=== PATIENT | male | born 1930 | race African-American/Black ===

== ENCOUNTER 2016-04-28 16:41 | Observation (INO) ==
[2016-04-28] MEDS ORDERED: DOCUSATE SODIUM 100 MG CAPSULE PO PRN (16:43)
[2016-04-28] MEDS ORDERED: ONDANSETRON 4 MG/2 ML VIAL IV PRN (16:43)
[2016-04-28] MEDS ORDERED: ACETAMINOPHEN 325 MG TABLET PO PRN (16:43)
[2016-04-28] MEDS ORDERED: SODIUM CHLORIDE 0.9% 1,000 ML IV SCH (17:00)
--- NOTE | 2016-04-28 18:14 | Family Practice History&Phys ---
Assessment and Plan (1) Recurrent right pleural effusion Status: Acute Assessment and plan: 04/27/1999 pain admitting patient to get a CT of his chest and will get pulmonary to see him Current Visit: Yes (2) Dyspnea Status: Acute Assessment and plan: 04/28/2016 appreciate pulmonary illness case. Oxygen as necessary for shortness of breath until we can address the probable effusion Current Visit: Yes (3) History of gastroesophageal reflux (GERD) Status: Acute Assessment and plan: 04/28/2016 we will continue proton pump inhibitors Current Visit: Yes History of Present Illness Chief complaint: Shortness of breath, pleural effusion, large inguinal hernia History of present illness: Mr. Joseph is a 85 year old male Came to the clinic today because he has been feeling weak and significantly short of breath over the last week. States he wakes up hot even though school in the house he denies any obvious fever but does have a mild but nonproductive cough. Has not had any loss of weight states he is eating well and his bowel movements have been okay. He also admits that he has been voiding well. Exam reveals decreased breath sounds in his bilateral basilar lung cash. His chest x-ray was done revealed a very large what appears to be pleural effusion with elevated right hemidiaphragm. The patient does not have any significant tachypnea nor does he have a significant decrease in oxygen sats but his heart rate is about 110. States that his mouth is very dry although this is difficult to elicit on exam with some only mildly dry mucous membranes. We did do an Accu-Chek which was 90. I am unclear to the etiology of his foot these findings but feel like we need to admit him and at least have this pleural effusion drained and evaluate further. I am going to go ahead and do a CT of his chest abdomen pelvis. It should be noted that he has got a very large inguinal hernia with probable intestinal contents going into the scrotal sac. He denies any significant pain with this but it does need to be evaluated and will get surgical candidate if in fact CT shows this and he is a surgical candidate. Appreciate pulmonary consult on this case 12 point system: reviewed and no additional remarkable complaints except as stated (Those mentioned in the history and physical.) - Constitutional Constitutional: Absent: anorexia - EENT Eyes: Absent: blurry vision Nose, mouth and throat: Present: other (Admits to dry mouth). Absent: dysphagia - Cardiovascular Cardiovascular: Absent: chest pain at rest - Respiratory Respiratory: Present: cough, dyspnea - Gastrointestinal Gastrointestinal: Absent: coffee ground emesis Exam - Constitutional Exam: GENERAL APPEARANCE: in mild distress, well developed, well nourished. SKIN: no suspicious lesions, warm and dry. HEAD: normocephalic, atraumatic. EYES: pupils equal, round, reactive to light and accommodation. EARS: normal. THROAT: clear. ORAL CAVITY: mucosa moist. NECK/THYROID: neck supple, full range of motion, no cervical lymphadenopathy. HEART: no murmurs, regular rate and rhythm, S1, S2 normal. LUNGS: clear to auscultation bilaterally. Decreased breath sounds bilaterally but worse on the right lower lung cash ABDOMEN: normal, bowel sounds present, soft, nontender, nondistended. GENITOURINARY: deferred. EXTREMITIES: no clubbing, cyanosis, or edema. MUSCULOSKELETAL: normal, no swelling or deformity. NEUROLOGIC: nonfocal, motor strength normal upper and lower extremities , sensory exam intact.
--- NOTE | 2016-04-28 18:47 | CT Report ---
CT chest abdomen pelvis wo/w Indication: Bilateral pleural effusion, scrotal mass Comparison: None Technique: Multiple axial tomographic images of the chest, abdomen, and pelvis were obtained before and after the administration of 100 cc Omnipaque 350 intravenous contrast. Findings: Atelectatic calcifications of the great vessels and coronary arteries. Moderate cardiomegaly present. Reflux of contrast into the IVC and hepatic veins suggestive of an element of right heart failure. There is moderate to large right and small left pleural fluid. There is atelectasis of much of the right lower lobe. Scattered interlobular septal thickening present. Osseous and surrounding soft tissue structures of the chest demonstrate no acute abnormality. Scattered degenerative change present. No worrisome focal hepatic abnormality. Gallbladder nondistended. Pancreas and spleen grossly unremarkable. Bilateral adrenal glands and kidneys grossly unremarkable. Urinary bladder incompletely distended. Minimal calcification the prostate. No evidence of gastrointestinal obstruction or acute appendicitis. There is a prominent right inguinal hernia which contains a moderate amount of small bowel as well as the appendix. 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 There is minimal ectasia of the infrarenal abdominal aorta measuring up to 2.2 cm. Nonspecific moderate abdominal wall edema. Osseous structures of the abdomen/pelvis demonstrate no acute abnormality. Scattered degenerative change present. IMPRESSION: Moderate cardiomegaly with reflux of contrast into the IVC and hepatic veins suggestive of an element of right heart failure. Moderate to large right and small left pleural effusions. There is significant atelectasis of much of the right lower lobe. Underlying infection would be difficult to exclude. Nonspecific scattered intralobular septal thickening present which could reflect interstitial pulmonary edema. Prominent right inguinal hernia which contains moderate amount of small bowel as well as appendix. There is no evidence of gastrointestinal obstruction. 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 There is minimal ectasia of the infrarenal abdominal aorta measuring up to 2.2 cm. Nonspecific body wall edema may reflect fluid overload state. PROCEDURE INTERPRETED AT [facility] DEPARTMENT OF RADIOLOGY Final Report Signed by: Dr Reed Sinclair
--- NOTE | 2016-04-28 18:59 | XRay Report ---
XR chest 2V Indication: SOB Comparison: None Technique: Frontal and lateral views of the chest. Findings: Moderate cardiomegaly. Moderate right and small left pleural fluid. There is atelectasis/consolidation within the right lung base. Underlying infection would be difficult to exclude although constellation of findings suggests CHF. There is mild prominence of pulmonary interstitial markings which could reflect mild interstitial pulmonary edema. Osseous and surrounding soft tissue structures demonstrate no acute abnormality. IMPRESSION: As above. PROCEDURE INTERPRETED AT [facility] DEPARTMENT OF RADIOLOGY Final Report Signed by: Dr Reed Sinclair
[2016-04-28 19:17] LABS: Basophils % 0.4 % (0.0-0.8); Eosinophils % 0.6 % (0.00-10.9); Hematocrit 41.8 VOL% (42.0-52.0); Hemoglobin 13.4 GM/DL (14.0-18.0); Immature Granulocytes % 0.3 %; Immature Granulocytes Absolute 0.02 #; Lymphocytes # 0.9 10*3/uL (1.4-4.0); Lymphocytes % 14.1 % (21.2-54.2); Mean Corpuscular HGB Conc 32.1 GM/DL (32-36); Mean Corpuscular Hemoglobin 30 PG (27-34); Mean Corpuscular Volume 93.9 FL (87-102); Mean Platelet Volume 11.6 FL (9.6-12.0); Monocytes # 0.8 10*3/uL (0.11-0.8); Monocytes % 11.5 % (1.7-12.7); Neutrophils # 4.9 10*3/uL (1.4-7.4); Neutrophils % 73.1 % (38.7-73.9); Platelet Count 201 T/CUMM (130-400); Red Blood Count 4.45 MC/CUMM (3.8-5.5); Red Cell Distribution Width 15.6 % (9.3-17.3); White Blood Count 6.7 T/CUMM (4-12)
[2016-04-28 19:37] LABS: Albumin 3.6 G/DL (3.4-5.0); Bilirubin,Total 0.6 MG/DL (0.2-1.0); Calcium 8.7 MG/DL (8.5-10.1); Osmolality,Calculated 284.1 MOS/KG (273-304); Potassium 3.6 MMOL/L (3.5-5.1)
[2016-04-28] MEDS: cefTRIAXone 1,000 MG in SODIUM CHLORIDE 0.9% 100 ML IV SCH (22:04)
[2016-04-29 05:36] LABS: Apearance,Urine CLEAR (Clear); Bilirubin,Urine Negative (Negative); Blood, Urine Negative (Negative); Glucose,Urine (UA) Negative (Negative); Ketones,Urine Negative (Negative); Mucus,Urine Few /LPF (Occasional); Nitrite,Urine Negative (Negative); Protein,Urine Negative; RBC,Urine <1 /HPF (0-4); Squamous Epithelial Cell,Urine Occasional /HPF (0-10); Urine Color Yellow (Yellow); WBC,Urine <1 /HPF (0-6)
--- NOTE | 2016-04-29 07:56 | EKG Report ---
Stationary ECG Study [facility] Test Date: 04/29/2016 7:05:49 AM Pat Name: Lucy ALBARADO Department: Room: 539 Gender: M Javascript Ui Developer: BENNY : 1930 Requested by: Mario Alberto Rice Order Number: [id number] Diogenes MD: ANSON GALICIA Intervals [place] Rate: 101 P: 78 VT: 157 QRS: 70 QRSD: 98 T: -44 QT: 367 QTc: 425 Interpretive Statements SINUS TACHYCARDIA POSSIBLE LEFT ATRIAL ENLARGEMENT POSSIBLE ANTERIOR MYOCARDIAL INFARCTION, OF INDETERMINATE AGE PROBABLE INFERIOR MYOCARDIAL INFARCTION, OF INDETERMINATE AGE Electronically Signed On 05-01-16 19:31:22 CDT by ANSON GALICIA [email or web address]
[2016-04-29] MEDS: PANTOPRAZOLE 40 MG TABLET PO SCH (08:22)
[2016-04-29] MEDS ORDERED: FUROSEMIDE 40 MG/4 ML VIAL IV ONE (09:46)
--- NOTE | 2016-04-29 10:13 | Pulmonology Consult Note ---
Assessment and Plan (1) Recurrent right pleural effusion Status: Acute Assessment and plan: The patient has actually bilateral pleural effusions worse on the right. I suspect he has some cardiac dysfunction. We will check an echocardiogram and go ahead with a right thoracentesis. Current Visit: Yes (2) Dyspnea Status: Acute Assessment and plan: He is short of breath and I suspect some cardiac dysfunction Current Visit: Yes (3) History of gastroesophageal reflux (GERD) Status: Acute Assessment and plan: He will continue treatment for reflux Current Visit: Yes History of Present Illness Chief complaint: Shortness of breath History of present illness: Mr. Joseph is a 85 year old black male that has a history of having possibly hypertension but otherwise been quite healthy and active. He is a lifetime non- smoker. He says the last 3-4 days he has had more shortness of breath has had trouble lying flat at night. He has not been really having a lot of fever or chest pain. He has not had any sputum production. He does not think he has ever had any heart disease. He came in and was found to have a fairly large right pleural effusion. He has not been in the hospital in quite some time. Home Medications Medication Instructions Recorded Confirmed Type Dexlansoprazole [Dexilant] 60 mg PO DAILY 04/29/16 04/29/16 History Allergies Allergy/AdvReac Type Severity Reaction Status Date / Time No Known Allergies Allergy Verified 04/28/16 19:06 - Constitutional Constitutional: Present: fatigue. Absent: chills, fever(s), weight gain, weight loss - EENT Eyes: Absent: loss of vision Ears: Absent: decreased hearing Nose, mouth and throat: Absent: dysphagia, headache(s), sinus pressure - Cardiovascular Cardiovascular: Present: dyspnea, orthopnea, PND. Absent: chest pain at rest, edema - Respiratory Respiratory: Present: cough. Absent: hemoptysis, wheezing, pain on inspiration , change in phlegm color - Gastrointestinal Gastrointestinal: Absent: abdominal pain, change in bowel habits, dysphagia, nausea, vomiting - Genitourinary Genitourinary: Absent: dysuria, hematuria, nocturia, urinary frequency - Musculoskeletal Musculoskeletal: Absent: arthralgias, muscle weakness - Neurological Neurological: Absent: abnormal speech, focal weakness, paresthesias Exam (Pulmonay) H&P - Constitutional Vitals: Period Temp Pulse Resp BP Sys/Morton Pulse Ox Last 24 Hr 97.7 F-98.2 F 96-98 18-20 117-122/68-83 97-100 General appearance: normal weight, no acute distress, other (He is an elderly man that looks quite healthy) - Head Head exam: Present: normal inspection, normocephalic - Eye Eye exam: Present: EOMI. Absent: scleral icterus Pupils: Present: SAEED - ENT ENT exam: Present: normal exam - Neck Neck exam: Present: normal inspection. Absent: lymphadenopathy, thyromegaly - Respiratory Respiratory exam: Present: decreased breath sounds (He has decreased breath sounds in the right base.), rales (He has some crackles in the bases). Absent: wheezes - Cardiovascular Cardiovascular exam: Present: gallop (He has a gallop rhythm.), regular rate and rhythm, tachycardia. Absent: systolic murmur - GI/Abdominal GI/Abdominal exam: Present: normal bowel sounds, hernia (Has a right inguinal hernia), soft. Absent: organomegaly, tenderness - Extremities Exam Extremities exam: Absent: calf tenderness, edema - Neurological Exam Neurological exam: Present: alert, oriented X3, CN II-XII intact - Psychiatric Psychiatric exam: Present: normal affect - Skin Skin exam: Present: warm, dry Medical,Surgical,& Family Hx - Medical History Cardio: History of: Hypertension Gastrointestinal: History of: GERD - Social History Smoking Status: Never smoker Frequency of Alcohol Use: None Type of Drug Use: None Results - Labs CBC & BMP: 04/28/16 19:03 04/28/16 19:03 - Diagnostic Findings Procedure: Chest x-ray: image reviewed by me, report reviewed by me (Chest x- ray shows cardiomegaly and right pleural effusion), CT - chest: image reviewed by me, report reviewed by me (He does have bilateral effusions right greater than left)
--- NOTE | 2016-04-29 10:22 | Operative Note ---
Date of procedure: 04/29/16 Pre-op diagnosis: Right pleural effusion Post-op diagnosis: other (Large right pleural effusion that is probably a transudate) Procedure: The patient is a [85-year-old black man that is short of breath] and has a right pleural effusion. Thoracentesis will be done for diagnosis. Procedure: The right chest was prepped in the usual manner. 1% lidocaine was used for anesthesia. A needle was inserted into the right posterior chest and fluid was removed. Then a catheter was inserted into the right posterior chest. Then [1300 cc] of clear yellow fluid was removed. The fluid was sent for studies. Patient tolerated procedure well. Impression: [Large right pleural effusion which is probably a transudate. Plan: We will check studies and check an echocardiogram.] Anesthesia: local Surgeon / Physician: Ross Ro Estimated blood loss: none Specimens: other (Pleural fluid was sent for chemistries, culture, cytology) Condition: stable Disposition: floor Results - Labs CBC & BMP: 04/28/16 19:03 04/28/16 19:03 Discharge Plan - Discharge Medications No Action Dexlansoprazole [Dexilant] 60 mg PO DAILY - Follow Up or Referral - Forms/Instructions
[2016-04-29 10:30] LABS: Lymphocytes,Pleural Fluid 79 %; Monocytes,Pleural Fluid 5 %; Neutrophils,Pleural Fluid 16 %
[2016-04-29 10:35] LABS: RBC,Pleural Fluid 966 T/CUMM
--- NOTE | 2016-04-29 12:02 | XRay Report ---
XR chest 2V Date: 04/29/2016 10:10 AM History: Pneumothorax, shortness of breath Comparison: 04/28/2016 Technique: PA and lateral chest Findings: Stable cardiomegaly with uncoiling of the aorta. Reduce pleural and parenchymal findings in the right mid to lower lung zone with no pneumothorax. Diffuse parenchymal findings persists at the left lung base with small left pleural effusion. Stable mediastinal and with degenerative changes. Impression: Significant reduction in the pleural and parenchymal findings in the right mid to lower lung zone with no pneumothorax. More stable parenchymal findings at the left lung base with small left pleural effusion. PROCEDURE INTERPRETED AT [facility] DEPARTMENT OF RADIOLOGY Final Report Signed by: Dr. Tanesha Purdy
--- NOTE | 2016-04-29 13:16 | Family Practice Progress Note ---
Family Practice - PN: Subj Interval history: Patient seen today. He is significantly better since he had his thoracentesis done which are draining a lot of transudate of fluids. He is not short of breath. Still a little weak but otherwise doing well it is noted that his BNP was elevated at 1450 and I am going to go and get a cardiology consult in light of this fact, and the fact that he does have a pleural effusion probably associated with some congestive heart failure. Going to start him back on soft diet as tolerated for now. Otherwise unchanged status Exam (Progress Note) - Constitutional Vitals: Period Temp Pulse Resp BP Sys/Morton Pulse Ox Last 24 Hr 97.7 F-98.2 F 96-105 18-20 113-122/68-83 97-100 Exam: GENERAL APPEARANCE: in mild distress, well developed, well nourished. SKIN: no suspicious lesions, warm and dry. HEAD: normocephalic, atraumatic. EYES: pupils equal, round, reactive to light and accommodation. EARS: normal. THROAT: clear. ORAL CAVITY: mucosa moist. NECK/THYROID: neck supple, full range of motion, no cervical lymphadenopathy. HEART: no murmurs, regular rate and rhythm, S1, S2 normal. LUNGS: clear to auscultation bilaterally. Much improved aeration ABDOMEN: normal, bowel sounds present, soft, nontender, nondistended. GENITOURINARY: deferred. EXTREMITIES: no clubbing, cyanosis, or edema. MUSCULOSKELETAL: normal, no swelling or deformity. NEUROLOGIC: nonfocal, motor strength normal upper and lower extremities , sensory exam intact. Results - Labs CBC & BMP: 04/28/16 19:03 04/28/16 19:03 Assessment and Plan (1) Recurrent right pleural effusion Status: Acute Assessment and plan: 04/28/2016pain admitting patient to get a CT of his chest and will get pulmonary to see him 04/29/2016: Pleural effusion drained it was noted to be transudate Current Visit: Yes (2) Dyspnea Status: Acute Assessment and plan: 04/28/2016 appreciate pulmonary illness case. Oxygen as necessary for shortness of breath until we can address the probable effusion 04/29/2016: Patient having significant decrease in dyspnea we will continue to monitor Current Visit: Yes (3) History of gastroesophageal reflux (GERD) Status: Acute Assessment and plan: 04/28/2016 we will continue proton pump inhibitors 04/29/2016 history of GERD patient did not have any problems at this time Current Visit: Yes
--- NOTE | 2016-04-29 16:22 | Cardiology Consult Note ---
<Nathalie English E - Last Filed: 04/29/16 16:10> Assessment and Plan - Time spent with patient Time spent with patient: Less than 30 minutes (1) Elevated brain natriuretic peptide (BNP) level Status: Acute Assessment and plan: Echocardiogram has been ordered and will be reviewed. He received a dose of Lasix 40 mg IV today and has been diuresing well. Current Visit: Yes (2) Dyspnea Status: Acute Assessment and plan: Much improved after thoracentesis today by Dr. Ro. 1300 mL of transudate of fluid was removed from the right posterior chest. Current Visit: Yes (3) Recurrent right pleural effusion Status: Acute Assessment and plan: Pulmonology following. Current Visit: Yes (4) History of gastroesophageal reflux (GERD) Status: Chronic Assessment and plan: Family practice following. Currently on Protonix 40 mg p.o. daily. Current Visit: Yes (5) Advanced age Status: Chronic Current Visit: Yes History of Present Illness - Data of Consult Patient: new to practice Consult date: 04/29/16 Requesting Physician: Mario Alberto Hardy Primary care physician: Mario Alberto Hardy - Consult Narrative Reason for consult: elevated BNP, SOB, pleural effusion History of present illness: Mr. Joseph is a 85 year old male who has never seen a sales operations specialist. His primary care provider is Dr. Mario Alberto Hardy. He has a history of gastroesophageal reflux disease. He denies a history of hypertension, hyperlipidemia, diabetes, or any other medical issues. His mother and father both had hypertension but no cardiac disease to his knowledge. He is a non- smoker. He has risk factors significant for: age, overweight. He was admitted to the hospital from the clinic on 04/28/[address] Hardy for complaints of feeling weak and significantly short of breath for the last several days. He reports shortness of breath that is worse when lying down. He states his SOB is not worse with exertion. He denies exertional chest pain, exertional shortness of breath, palpitations, dizziness, lightheadedness, or syncope. He does tell me that he becomes diaphoretic when he lies down and feels as if he cannot breath. He also reports having night sweats. He does have a mild nonproductive cough. He does describe chest "tightness" and feeling like he cannot get his air when he lies down. He was found to have a large right sided pleural effusion and has been seen by pulmonology. Today, he underwent thoracentesis of 1300 ml of transudative fluid by Dr. Ro. Mr. Joseph reports he is feeling much better now. Mr. Joseph denies trouble with bilateral lower extremity edema although there is some mild pitting edema present. He does report having an edematous abdomen when he was admitted but this has since improved. We were called in consultation to see him for an elevated BNP of 1485. An echocardiogram has been done and will be reviewed. Heart sounds are regular with rates in the 90's-100's. He has been afebrile. Blood pressures have been well controlled. Further plan and addendum to follow by Dr. Daugherty. CC: Mario Alberto Hardy, DO - Home Medications and Allergies Home Medications: Home Medications Medication Instructions Recorded Confirmed Type Dexlansoprazole [Dexilant] 60 mg PO DAILY 04/29/16 04/29/16 History Allergies/Adverse Reactions: Allergies Allergy/AdvReac Type Severity Reaction Status Date / Time No Known Allergies Allergy Verified 04/28/16 19:06 Review of systems: - Constitutional: Present: night sweats, weakness, As per HPI. Absent: anorexia , chills, daytime sleepiness, excessive sweating, fever(s), frequent falls, headache(s), increased appetite, lethargy, malaise, stops breathing during sleep , weight gain, weight loss, fatigue. - EENT Eyes: Present: As per HPI. Absent: blurry vision, diplopia, loss of vision Ears: Present: As per HPI. Absent: decreased hearing, ear discharge, ear pain Nose, mouth and throat: Present: dry mouth, As per HPI. Absent: dysphagia, epistaxis, headache(s), hoarseness, lip swelling, nasal congestion, neck mass, neck pain, sinus pressure, sore throat, throat swelling, tongue swelling, vertigo - Cardiovascular: Present: dyspnea, edema, as per HPI. Absent: chest pain at rest, chest pain with activity, dyspnea on exertion, claudication, diaphoresis, radiating jaw, neck or arm pain, lightheadedness, orthopnea, palpitations, PND - Respiratory: Present: dyspnea, cough, as per HPI. Absent: dyspnea on exertion , hemoptysis, wheezing, snoring, pain on inspiration - Gastrointestinal: Present: As per HPI. Absent: abdominal pain, bloating, change in bowel habits, constipation, diarrhea, heartburn, hematemesis, hematochezia, loose stools, melena, nausea, vomiting - Genitourinary: Present: As per HPI. Absent: difficulty urinating, dysuria, flank pain, hematuria, nocturia, urinary frequency, urinary incontinence - Musculoskeletal: Present: As per HPI. Absent: arthralgias, back pain, joint swelling, limited range of motion, muscle cramps, muscle weakness, myalgias - Neurological: Present: As per HPI. Absent: abnormal gait, abnormal speech, behavioral changes, confusion, convulsions, disequilibrium, dizziness, focal weakness, frequent falls, headache(s), memory loss, numbness, paresthesias, radicular pain, syncope, tremor(s) - Psychiatric: Present: As per HPI. Absent: anxiety, confusion, depression, panic attacks - Endocrine: Present: heat intolerance, As per HPI. Absent: cold intolerance, fatigue, polydipsia, polyphagia - Hematologic/Lymphatic: Present: As per HPI. Absent: easy bleeding, easy bruising, lymphadenopathy Medical,Surgical,& Family Hx - Medical History Cardio: History of: Hypertension Gastrointestinal: History of: GERD - Social History Smoking Status: Never smoker Frequency of Alcohol Use: None Type of Drug Use: None Physical Examination Vital Signs Resp 18 04/28/16 18:59 Other: General: Present: Appears Well, No Apparent Distress. Pleasant and cooperative. Appears comfortable. HEENT: Present: PERRL, Normocephaly, atraumatic. Mucus Membranes Moist. No jaundice noted. Conjunctiva moist and clear, sclerae anicteric Neck: Present: Supple Neck, Midline Trachea, No Masses, No Bruit Cardiac: Present: Regular Rate and Rhythm, No Murmur Lungs: Present: Clear to auscultation bilaterally, decreased breath sounds bilaterally. Neuro: Present: Awake, alert, and oriented x3. Moves all extremities well without hemiparesis or paralysis. Grossly Intact. Absent: Resting Tremor, Essential Tremor Abdomen: Present: Soft, Active Bowel Sounds, No Masses, Non-Tender, nondistended. No abdominal bruit or thrill noted. Skin: Present: Clear. Absent: Rash, No skin breakdown. Musculoskeletal: Present: No Fluid Collection, No Pain, Normal Range of Motion Extremities: Present: Normal Gait, No Clubbing, No Cyanosis, Upper Extr. Pulses 2+, Lower Extr. Pulses 2+, 1+ edema to bilateral lower extremities. Capillary refill less than 3 seconds. Result/EKG - Labs CBC & BMP: 04/28/16 19:03 04/28/16 19:03 Lab Results: I have reviewed the past 24 hour labs Labs: Laboratory Results - last 24 hr 04/28/16 04/28/16 04/28/16 18:26 19:03 19:03 WBC 6.7 RBC 4.45 Hgb 13.4 L Hct 41.8 L MCV 93.9 MCH 30 MCHC 32.1 RDW 15.6 Plt Count 201 MPV 11.6 Neut % (Auto) 73.1 Lymph % (Auto) 14.1 L Runnels % (Auto) 11.5 Eos % (Auto) 0.6 Baso % (Auto) 0.4 Neut # (Auto) 4.9 Lymph # (Auto) 0.9 L Runnels # (Auto) 0.8 Eos # (Auto) 0.0 Baso # (Auto) 0.0 Immature Gran % 0.3 Nucleated RBC % 0.0 Immature Gran # 0.02 Nucleated RBCs # 0.00 Sodium 142 Potassium 3.6 Chloride 103 Carbon Dioxide 29 Anion Gap 13.6 BUN 17 Creatinine 1.30 POC Creatinine 0.75 GFR Calculation 62 POC Estimated GFR (eGFR) > 60 BUN/Creatinine Ratio 13.00 Glucose 98 Calculated Osmolality 284.1 Calcium 8.7 Magnesium Total Bilirubin 0.60 AST 79 H ALT 145 H Alkaline Phosphatase 68 C-Reactive Protein B-Natriuretic Peptide Total Protein 7.0 Albumin 3.6 Globulin 3.4 Albumin/Globulin Ratio 1.0 L Urine Color Urine Appearance Urine pH Ur Specific Guthrie Urine Protein Urine Glucose (UA) Urine Ketones Urine Blood Urine Nitrate Urine Bilirubin Urine Urobilinogen Urine Leukocytes Urine RBC Urine WBC Ur Squamous Epith Cells Urine Mucus Ur Culture Indicated? Fluid Total Protein Fluid Albumin Fluid LDH Pleural WBC Pleural RBC Pleural Tot Cell Ct Pleural Neutrophils Pleural Lymphocytes Pleural Monocytes Pleural Diff Comment Pleural Glucose 04/28/16 04/28/16 04/28/16 19:03 19:03 19:03 WBC RBC Hgb Hct MCV MCH MCHC RDW Plt Count MPV Neut % (Auto) Lymph % (Auto) Runnels % (Auto) Eos % (Auto) Baso % (Auto) Neut # (Auto) Lymph # (Auto) Runnels # (Auto) Eos # (Auto) Baso # (Auto) Immature Gran % Nucleated RBC % Immature Gran # Nucleated RBCs # Sodium Potassium Chloride Carbon Dioxide Anion Gap BUN Creatinine POC Creatinine GFR Calculation POC Estimated GFR (eGFR) BUN/Creatinine Ratio Glucose Calculated Osmolality Calcium Magnesium 2.2 Total Bilirubin AST ALT Alkaline Phosphatase C-Reactive Protein 2.31 H B-Natriuretic Peptide 1485 H Total Protein Albumin Globulin Albumin/Globulin Ratio Urine Color Urine Appearance Urine pH Ur Specific G[place]rie Urine Protein Urine Glucose (UA) Urine Ketones Urine Blood Urine Nitrate Urine Bilirubin Urine Urobilinogen Urine Leukocytes Urine RBC Urine WBC Ur Squamous Epith Cells Urine Mucus Ur Culture Indicated? Fluid Total Protein Fluid Albumin Fluid LDH Pleural WBC Pleural RBC Pleural Tot Cell Ct Pleural Neutrophils Pleural Lymphocytes Pleural Monocytes Pleural Diff Comment Pleural Glucose 04/29/16 04/29/16 04/29/16 03:28 10:17 Unknown WBC RBC Hgb Hct MCV MCH MCHC RDW Plt Count MPV Neut % (Auto) Lymph % (Auto) Runnels % (Auto) Eos % (Auto) Baso % (Auto) Neut # (Auto) Lymph # (Auto) Runnels # (Auto) Eos # (Auto) Baso # (Auto) Immature Gran % Nucleated RBC % Immature Gran # Nucleated RBCs # Sodium Potassium Chloride Carbon Dioxide Anion Gap BUN Creatinine POC Creatinine GFR Calculation POC Estimated GFR (eGFR) BUN/Creatinine Ratio Glucose Calculated Osmolality Calcium Magnesium Total Bilirubin AST ALT Alkaline Phosphatase C-Reactive Protein B-Natriuretic Peptide Total Protein Albumin Globulin Albumin/Globulin Ratio Urine Color Yellow Urine Appearance Clear Urine pH 5.0 Ur Specific Guthrie 1.060 H Urine Protein Negative Urine Glucose (UA) Negative Urine Ketones Negative Urine Blood Negative Urine Nitrate Negative Urine Bilirubin Negative Urine Urobilinogen 2.0 H Urine Leukocytes Negative Urine RBC <1 Urine WBC <1 Ur Squamous Epith Cells Occasional Urine Mucus Few Ur Culture Indicated? Not indicated Fluid Total Protein Fluid Albumin 1.1 Fluid LDH Pleural WBC 425 Pleural RBC [address] 100 Pleural Neutrophils 16 Pleural Lymphocytes 79 Pleural Monocytes 5 Pleural Diff Comment Pleural Glucose 04/29/16 04/29/16 04/29/16 Unknown Unknown Unknown WBC RBC Hgb Hct MCV MCH MCHC RDW Plt Count MPV Neut % (Auto) Lymph % (Auto) Runnels % (Auto) Eos % (Auto) Baso % (Auto) Neut # (Auto) Lymph # (Auto) Runnels # (Auto) Eos # (Auto) Baso # (Auto) Immature Gran % Nucleated RBC % Immature Gran # Nucleated RBCs # Sodium Potassium Chloride Carbon Dioxide Anion Gap BUN Creatinine POC Creatinine GFR Calculation POC Estimated GFR (eGFR) BUN/Creatinine Ratio Glucose Calculated Osmolality Calcium Magnesium Total Bilirubin AST ALT Alkaline Phosphatase C-Reactive Protein B-Natriuretic Peptide Total Protein Albumin Globulin Albumin/Globulin Ratio Urine Color Urine Appearance Urine pH Ur Specific G[place]rie Urine Protein Urine Glucose (UA) Urine Ketones Urine Blood Urine Nitrate Urine Bilirubin Urine Urobilinogen Urine Leukocytes Urine RBC Urine WBC Ur Squamous Epith Cells Urine Mucus Ur Culture Indicated? Fluid Total Protein < 2.0 Fluid Albumin Fluid LDH 102 Pleural WBC Pleural RBC Pleural Tot Cell Ct Pleural Neutrophils Pleural Lymphocytes Pleural Monocytes Pleural Diff Comment Pleural Glucose 109 - EKG EKG results: interpreted by me, sinus rhythm (with T-wave inversions in leads 2 & 3. ) EKG shows: tachycardia <Misty Daugherty - Last Filed: 04/29/16 17:09> Assessment and Plan - Time spent with patient Time spent with patient: Greater than 30 minutes (Examination, interview, documentation, procedure discussion and orders) (1) Cardiomyopathy Status: Acute Assessment and plan: This appears to involve all distal segments. The patient has not had any apparent life stressors within the last few weeks. This is seems to be subacute lasting are symptomatically now for several days. There is incomplete evaluation of the aortic valve but it seems like with the potential of his problems. He has 2 pillow orthopnea he has not had any lower extremity edema is primarily had signs of left heart failure. She had recurrent right pleural effusion his elevated beta natruretic peptide and clearly has an abnormal exam and abnormal transthoracic echo. I will initiate beta mac MIKE inhibitor diuretics aldosterone antagonism and schedule the patient for left heart catheterization with coronary angiography and possible percutaneous coronary mention tomorrow. I discussed with the patient and his in detail. They will discuss tonight but we will tentatively schedule for tomorrow morning at 9: 00. This is both systolic and diastolic heart failure worsened or persisted possibly even caused by valvular heart disease. The distribution would suggest either multivessel disease or non-vascular problems Current Visit: Yes (2) Aortic insufficiency Status: Chronic Assessment and plan: The chamber cavity is not enlarged as looks at least moderate by pressure half- time of the 200s it may be more acute and more severe than anticipated. Current Visit: Yes Qualifiers: Cardiac valve disease etiology: etiology unspecified Qualified Code(s): I35.1 - Nonrheumatic aortic (valve) insufficiency (3) Mitral regurgitation Status: Acute Current Visit: Yes Qualifiers: Cardiac valve disease etiology: etiology unspecified Qualified Code(s): I34.0 - Nonrheumatic mitral (valve) insufficiency (4) Hypertension Status: Acute Current Visit: Yes Qualifiers: Hypertension type: essential hypertension Qualified Code(s): I10 - Essential (primary) hypertension (5) History of gastroesophageal reflux (GERD) Status: Chronic Current Visit: Yes History of Present Illness - Data of Consult Patient: new to practice - Consult Narrative History of present illness: Mr. Joseph is a 85 year old male CC: Mario Alberto Hardy DO - Cardiovascular Cardiovascular: Present: dyspnea, dyspnea on exertion, orthopnea, palpitations. Absent: chest pain at rest - Gastrointestinal Gastrointestinal: Absent: abdominal pain - Musculoskeletal Musculoskeletal: Absent: arthralgias - Neurological Neurological: Absent: abnormal gait - Hematologic/Lymphatic Hematologic/Lymphatic: Absent: easy bleeding, easy bruising Medical,Surgical,& Family Hx - Medical History Cardio: History of: Hypertension Gastrointestinal: History of: GERD - Social History Smoking Status: Former smoker Have you smoked in the last 12 months: No Frequency of Alcohol Use: None Type of Drug Use: None Marital Status: Lives With:: Spouse Functional capacity: independent ambulation Physical Examination Vital Signs Resp 18 04/28/16 18:59 General: Present: Appears Well HEENT: Present: Normocephaly Neck: Present: JVD/HJR (JVP is estimated approximately 10 cm water) Cardiac: Present: Regular Rhythm, S1/S2 (Murmur of aortic insufficiency. I do not hear MR. SZYMANSKI is not laterally displaced), S4 Lungs: Present: Other (Marked diminished breath sounds at the right base. Good excursion and breath sounds on the left) Neuro: Present: Cranial Nerve 2-12 Intact Abdomen: Present: Soft, Active Bowel Sounds Skin: Present: Clear Gait: Present: Normal Gait Extremities: Present: Clubbing. Absent: Edema Result/EKG - Labs CBC & BMP: 04/28/16 19:03 04/28/16 19:03 Labs: Laboratory Results - last 24 hr 04/28/16 04/28/16 04/28/16 18:26 19:03 19:03 WBC 6.7 RBC 4.45 Hgb 13.4 L Hct 41.8 L MCV 93.9 MCH 30 MCHC 32.1 RDW 15.6 Plt Count 201 MPV 11.6 Neut % (Auto) 73.1 Lymph % (Auto) 14.1 L Runnels % (Auto) 11.5 Eos % (Auto) 0.6 Baso % (Auto) 0.4 Neut # (Auto) 4.9 Lymph # (Auto) 0.9 L Runn[place] # (Auto) 0.8 Eos # (Auto) 0.0 Baso # (Auto) 0.0 Immature Gran % 0.3 Nucleated RBC % 0.0 Immature Gran # 0.02 Nucleated RBCs # 0.00 Sodium 142 Potassium 3.6 Chloride 103 Carbon Dioxide 29 Anion Gap 13.6 BUN 17 Creatinine 1.30 POC Creatinine 0.75 GFR Calculation 62 POC Estimated GFR (eGFR) > 60 BUN/Creatinine Ratio 13.00 Glucose 98 Calculated Osmolality 284.1 Calcium 8.7 Magnesium Total Bilirubin 0.60 AST 79 H ALT 145 H Alkaline Phosphatase 68 C-Reactive Protein B-Natriuretic Peptide Total Protein 7.0 Albumin 3.6 Globulin 3.4 Albumin/Globulin Ratio 1.0 L Urine Color Urine Appearance Urine pH Ur Specific G[place] Urine Protein Urine Glucose (UA) Urine Ketones Urine Blood Urine Nitrate Urine Bilirubin Urine Urobilinogen Urine Leukocytes Urine RBC Urine WBC Ur Squamous Epith Cells Urine Mucus Ur Culture Indicated? Fluid Total Protein Fluid Albumin Fluid LDH Pleural WBC Pleural RBC Pleural Tot Cell Ct Pleural Neutrophils Pleural Lymphocytes Pleural Monocytes Pleural Diff Comment Pleural Glucose 04/28/16 04/28/16 04/28/16 19:03 19:03 19:03 WBC RBC Hgb Hct MCV MCH MCHC RDW Plt Count MPV Neut % (Auto) Lymph % (Auto) Runnels % (Auto) Eos % (Auto) Baso % (Auto) Neut # (Auto) Lymph # (Auto) Runnels # (Auto) Eos # (Auto) Baso # (Auto) Immature Gran % Nucleated RBC % Immature Gran # Nucleated RBCs # Sodium Potassium Chloride Carbon Dioxide Anion Gap BUN Creatinine POC Creatinine GFR Calculation POC Estimated GFR (eGFR) BUN/Creatinine Ratio Glucose Calculated Osmolality Calcium Magnesium 2.2 Total Bilirubin AST ALT Alkaline Phosphatase C-Reactive Protein 2.31 H B-Natriuretic Peptide 1485 H Total Protein Albumin Globulin Albumin/Globulin Ratio Urine Color Urine Appearance Urine pH Ur Specific G[place] Urine Protein Urine Glucose (UA) Urine Ketones Urine Blood Urine Nitrate Urine Bilirubin Urine Urobilinogen Urine Leukocytes Urine RBC Urine WBC Ur Squamous Epith Cells Urine Mucus Ur Culture Indicated? Fluid Total Protein Fluid Albumin Fluid LDH Pleural WBC Pleural RBC Pleural Tot Cell Ct Pleural Neutrophils Pleural Lymphocytes Pleural Monocytes Pleural Diff Comment Pleural Glucose 04/29/16 04/29/16 04/29/16 03:28 10:17 Unknown WBC RBC Hgb Hct MCV MCH MCHC RDW Plt Count MPV Neut % (Auto) Lymph % (Auto) Runnels % (Auto) Eos % (Auto) Baso % (Auto) Neut # (Auto) Lymph # (Auto) Runnels # (Auto) Eos # (Auto) Baso # (Auto) Immature Gran % Nucleated RBC % Immature Gran # Nucleated RBCs # Sodium Potassium Chloride Carbon Dioxide Anion Gap BUN Creatinine POC Creatinine GFR Calculation POC Estimated GFR (eGFR) BUN/Creatinine Ratio Glucose Calculated Osmolality Calcium Magnesium Total Bilirubin AST ALT Alkaline Phosphatase C-Reactive Protein B-Natriuretic Peptide Total Protein Albumin Globulin Albumin/Globulin Ratio Urine Color Yellow Urine Appearance Clear Urine pH 5.0 Ur Specific Guthrie 1.060 H Urine Protein Negative Urine Glucose (UA) Negative Urine Ketones Negative Urine Blood Negative Urine Nitrate Negative Urine Bilirubin Negative Urine Urobilinogen 2.0 H Urine Leukocytes Negative Urine RBC <1 Urine WBC <1 Ur Squamous Epith Cells Occasional Urine Mucus Few Ur Culture Indicated? Not indicated Fluid Total Protein Fluid Albumin 1.1 Fluid LDH Pleural WBC 425 Pleural RBC [address] 100 Pleural Neutrophils 16 Pleural Lymphocytes 79 Pleural Monocytes 5 Pleural Diff Comment Pleural Glucose 04/29/16 04/29/16 04/29/16 Unknown Unknown Unknown WBC RBC Hgb Hct MCV MCH MCHC RDW Plt Count MPV Neut % (Auto) Lymph % (Auto) Runnels % (Auto) Eos % (Auto) Baso % (Auto) Neut # (Auto) Lymph # (Auto) Runnels # (Auto) Eos # (Auto) Baso # (Auto) Immature Gran % Nucleated RBC % Immature Gran # Nucleated RBCs # Sodium Potassium Chloride Carbon Dioxide Anion Gap BUN Creatinine POC Creatinine GFR Calculation POC Estimated GFR (eGFR) BUN/Creatinine Ratio Glucose Calculated Osmolality Calcium Magnesium Total Bilirubin AST ALT Alkaline Phosphatase C-Reactive Protein B-Natriuretic Peptide Total Protein Albumin Globulin Albumin/Globulin Ratio Urine Color Urine Appearance Urine pH Ur Specific G[place] Urine Protein Urine Glucose (UA) Urine Ketones Urine Blood Urine Nitrate Urine Bilirubin Urine Urobilinogen Urine Leukocytes Urine RBC Urine WBC Ur Squamous Epith Cells Urine Mucus Ur Culture Indicated? Fluid Total Protein < 2.0 Fluid Albumin Fluid LDH 102 Pleural WBC Pleural RBC Pleural Tot Cell Ct Pleural Neutrophils Pleural Lymphocytes Pleural Monocytes Pleural Diff Comment Pleural Glucose 109 - Impressions Impressions: I reviewed her transthoracic echo report is in the chart. - EKG EKG results: interpreted by me (Sinus tachycardia with biatrial abnormality LVH and possible old inferior myocardial infarction.)
[2016-04-29] MEDS: cefTRIAXone 1,000 MG in SODIUM CHLORIDE 0.9% 100 ML IV SCH (16:39)
--- NOTE | 2016-04-29 16:47 | ECHO Report ---
Lucy Joseph Exam Date: 04/29/2016 13:49 Referring Physician: Technologist: Dionne Herman Age: 85 Ht (in): 65 Wt (lb): 167 Gender: M Exam Location: [facility] Echo Indications: Recurrent RT. Pleural effusion, Hx. GERD BP: 117 / 81 HR: 96 Rhythm: Sinus Tachycardia Technical Quality: average IMPRESSIONS The EF is moderately depressed at about 30% with hypokinesis in all mid to distal segments. Diastolic parameters are most consistent with Grade 2 diastolic dysfunction or pseudonormalization. Tricuspid regurgitation velocities suggest a RVSP of 29 mmHg + RAP. Moderate to severe mitral regurgitation Moderate to severe aortic insufficiency MEASUREMENTS (Male / Female) Normal Values 2D ECHO LV Diastolic Diameter PLAX 5.0 cm 4.2 - 5.9 / 3.9 - 5.3 cm LV Systolic Diameter PLAX 3.7 cm LV Fractional Shortening PLAX 26.8 % IVS Diastolic Thickness 1.3 cm 0.6 - 1.0 / 0.6 - 0.9 cm LVPW Diastolic Thickness 1.1 cm 0.6 - 1.0 / 0.6 - 0.9 cm RV Internal Dim ED PLAX 2.2 cm Aortic Root Diameter 2.2 cm LA Systolic Diameter LX 4.4 cm 3.0 - 4.0 / 2.7 - 3.8 cm DOPPLER TR Peak Velocity 271.0 cm/s TR Peak Gradient 29.4 mmHg FINDINGS Left Ventricle Normal left ventricular cavity size. Mild concentric left ventricular hypertrophy . The EF is moderately depressed at about 30% with hypokinesis in all mid to distal segments. Diastolic parameters are most consistent with Grade 2 diastolic dysfunction or pseudonormalization. Right Ventricle Normal right ventricular size and systolic function. Right Atrium The right atrium is mildly enlarged. Left Atrium Mildly increased left atrial diameter. Mitral Valve Mild - moderely mitral valve sclerosis. Moderate to severe mitral valve regurgitation. Aortic Valve The aortic valve is calcified there is good excursion. There is moderate to severe aortic insufficiency with a pressure half-time of approximately 200 ms. Maximum velocity across the valve is 1.6 cm/s which corresponds with a peak instantaneous gradient of 11 mmHg. Tricuspid Valve Morphologically normal tricuspid valve. Moderate tricuspid valve regurgitation. Tricuspid regurgitation velocities suggest a RVSP of 29 mmHg + RAP. Pulmonic Valve Pulmonic valve not well visualized. Pericardium No pericardial effusion. + pleural effusion. Aorta Normal size aortic root and proximal ascending aorta. Misty Daugherty (Electronically Signed) Final Date: 29 April 2016 16:44
[2016-04-29] MEDS ORDERED: POTASSIUM CHLORIDE RIDER 10 MEQ in PREMIX 1 EACH IV PRN (17:37)
[2016-04-29] MEDS ORDERED: MAGNESIUM SULF RIDER 4 GM in PREMIX 1 EACH IV PRN (17:38)
[2016-04-29] MEDS ORDERED: MAGNESIUM SULF RIDER 2 GM in PREMIX 1 EACH IV PRN (17:38)
[2016-04-29] MEDS: FUROSEMIDE 40 MG TABLET PO SCH (18:06)
[2016-04-29] MEDS: ASPIRIN EC 81 MG TABLET PO SCH (18:07)
[2016-04-29] MEDS: CARVEDILOL 3.125 MG TABLET PO SCH (22:22)
[2016-04-29] MEDS: LISINOPRIL 2.5 MG TABLET PO SCH (22:22)
[2016-04-30 05:58] LABS: Hematocrit 35.2 VOL% (42.0-52.0); Hemoglobin 11.7 GM/DL (14.0-18.0)
[2016-04-30 05:59] LABS: Basophils % 0.5 % (0.0-0.8); Eosinophils % 0.7 % (0.00-10.9); Hematocrit 35.4 VOL% (42.0-52.0); Hemoglobin 11.5 GM/DL (14.0-18.0); Immature Granulocytes % 0.2 %; Immature Granulocytes Absolute 0.01 #; Lymphocytes # 0.7 10*3/uL (1.4-4.0); Lymphocytes % 12.6 % (21.2-54.2); Mean Corpuscular HGB Conc 32.5 GM/DL (32-36); Mean Corpuscular Hemoglobin 30 PG (27-34); Mean Corpuscular Volume 91.7 FL (87-102); Mean Platelet Volume 11.4 FL (9.6-12.0); Monocytes # 0.6 10*3/uL (0.11-0.8); Monocytes % 11.3 % (1.7-12.7); Neutrophils # 4.2 10*3/uL (1.4-7.4); Neutrophils % 74.7 % (38.7-73.9); Platelet Count 177 T/CUMM (130-400); Red Blood Count 3.86 MC/CUMM (3.8-5.5); Red Cell Distribution Width 15.7 % (9.3-17.3); White Blood Count 5.6 T/CUMM (4-12)
[2016-04-30] MEDS ORDERED: SODIUM CHLORIDE 0.9% 1,000 ML IV SCH (06:00)
[2016-04-30 06:12] LABS: INR 1.3; PT Patient Result 13.5 SECS; Partial Thromboplastin Time 28.9 SECS (0-40)
[2016-04-30 06:38] LABS: Albumin 2.7 G/DL (3.4-5.0); Bilirubin,Total 1.6 MG/DL (0.2-1.0); Calcium 8.3 MG/DL (8.5-10.1); Osmolality,Calculated 286.8 MOS/KG (273-304); Potassium 3.8 MMOL/L (3.5-5.1); Total Protein 5.6 G/DL (6.4-8.3)
--- NOTE | 2016-04-30 07:08 | EKG Report ---
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
[2016-04-30] MEDS ORDERED: LIDOCAINE 1% 20 ML VIAL ONE (07:32)
[2016-04-30] MEDS ORDERED: HEPARIN/NACL 0.9% 2 UNITS/ML 1,000 ML IV ONE (07:32)
[2016-04-30] MEDS: CARVEDILOL 3.125 MG TABLET PO SCH ×3 (07:38→21:12)
[2016-04-30] MEDS: LISINOPRIL 2.5 MG TABLET PO SCH ×3 (07:38→21:15)
[2016-04-30] MEDS: ASPIRIN EC 81 MG TABLET PO SCH ×2 (07:38→10:58)
[2016-04-30] MEDS ORDERED: diphenhydrAMINE CAP 25 MG CAPSULE PO ONE (08:00)
[2016-04-30] MEDS ORDERED: DIAZEPAM 5 MG TABLET PO ONE (08:00)
[2016-04-30] MEDS ORDERED: fentaNYL 100 MCG/2 ML VIAL ONE (08:06)
[2016-04-30] MEDS ORDERED: MIDAZOLAM 2 MG/2 ML VIAL ONE (08:06)
--- NOTE | 2016-04-30 08:25 | History and Physical Update ---
Sedation H&P Update - Dictation Physical: refer to H&P completed by admitting physician - Physical Exam Mental Status: alert and oriented Heart: regular rate and rhythm Lung: other (see my consult note) Abdomen: within normal limits Vitals: within normal limits - Sedation Plan for Sedation: moderate Patient Consent: Procedure disscussed with patient and patinet has consented., Risks and benefits were discussed with patient,including infection,, bleeding, injury to surrounding structures, seizure, temporary nerve, Patient understands and accepts potential risks/benefits and agrees to, proceed. ASA Class: III Airway Assessment: Class II: Soft palate, uvula, fauces visible
--- NOTE | 2016-04-30 08:59 | Pulmonology Progress Note ---
Pulmonary - PN: Subj Interval history: Patient is an 85-year-old black man that has recent shortness of breath and came in with a chest x-ray that suggested heart failure. He had a large right effusion that was tapped and is consistent with a transudate. His ejection fraction on his echocardiogram was only about 30%. He says he is breathing better and is comfortable. He is going for cardiac catheterization today. Exam (Progress Note) - Constitutional Vitals: Period Temp Pulse Resp BP Sys/Morton Pulse Ox Last 24 Hr 97.5 F-98.8 F 87-105 18-20 104-129/66-84 96-100 Exam: General appearance: normal weight, no acute distress, other (He is an elderly man that looks quite healthy. He is comfortable lying in bed today.) - Head Head exam: Present: normal inspection, normocephalic - Eye Eye exam: Present: EOMI. Absent: scleral icterus Pupils: Present: SAEED - ENT ENT exam: Present: normal exam - Neck Neck exam: Present: normal inspection. Absent: lymphadenopathy, thyromegaly - Respiratory Respiratory exam: Present: He has fairly good breath sounds bilaterally now with only minimal crackles. - Cardiovascular Cardiovascular exam: Present: gallop (He has a gallop rhythm.), regular rate and rhythm, tachycardia. Absent: systolic murmur - GI/Abdominal GI/Abdominal exam: Present: normal bowel sounds, hernia (Has a right inguinal hernia), soft. Absent: organomegaly, tenderness - Extremities Exam Extremities exam: Absent: calf tenderness, edema - Neurological Exam Neurological exam: Present: alert, oriented X3, CN II-XII intact - Psychiatric Psychiatric exam: Present: normal affect - Skin Skin exam: Present: warm, dry Results - Labs CBC & BMP: 04/30/16 05:35 04/30/16 05:34 - Diagnostic Findings Procedure: Chest x-ray: image reviewed by me, report reviewed by me (His post thoracentesis x-ray looks much better.) Assessment and Plan (1) Recurrent right pleural effusion Status: Acute Assessment and plan: The patient has actually bilateral pleural effusions worse on the right. Pleural fluid on the right is a transudate. He looks like he is breathing better now. Current Visit: Yes (2) Dyspnea Status: Acute Assessment and plan: He is better today and does have a decreased ejection fraction on echo. He is going for cardiac catheterization today. Current Visit: Yes (3) History of gastroesophageal reflux (GERD) Status: Chronic Assessment and plan: He will continue treatment for reflux Current Visit: Yes
--- NOTE | 2016-04-30 09:16 | Cardiac Catheterization ---
Date of Procedure:: 04/30/16 Pre-op Diagnosis: Cardiomyopathy, newly diagnosed Post-op diagnosis: other (Large right pleural effusion that is probably a transudate) Procedure: Procedures: 1. Left heart catheterization resting hemodynamics 2. Selective left and right coronary angiography 3. Aortic root angiography 4. Right femoral iliac angiography 5. Closure right femoral arteriotomy with Angio-Seal closure device 6. Selective left subclavian angiography. After consent was taken from the patient. Taken to the catheterization lab for left heart catheterization via the femoral artery. Time out was taken and recorded. 1% lidocaine was infiltrated in the skin and subcutaneous tissue overlying the right femoral artery. Modified Seldinger technique and an 18- gauge Cook needle was used for access to the right femoral artery. An 0.35 J- wire was advanced through the needle into the central aorta under fluoroscopy. A small skin was made and a 6 Kazakh sheath was placed over the wire. The sheath was aspirated and flushed. A JL46 was advanced over the wires in the left main coronary artery was selectively engaged. Multiple orthogonal views of the left system were obtained. The catheter was then exchanged over the wire. The sheath was aspirated and flushed. A JR4 catheter was advanced over the wire into the central aorta. The right coronary was selectively engaged and orthogonal views of the right coronary artery were obtained. The catheter was then pulled back in the central aorta and the selective angiography of the left subclavian with visualization YVROSE were performed in 2 orthogonal views. The catheter was then exchanged over the wire, the sheath was aspirated and flushed. At this time an angled pigtail catheter was advanced across the aortic valve into the ventricle. Pressure measurements were obtained. Pullback measurements were performed. Once in the descending aorta aortogram was performed in the AURORA projection to assess for a bit appear to be at least moderate by transthoracic echo possibly severe. By aortography was not severe. The corn press operator reviewed the films. The sheath was aspirated and flushed and a right femoral and iliac angiography was performed. The access site was amenable for closure and the area was reprepped with ChloraPrep and draped with sterile towels. The Angio-Seal closure device was used in standard technique. There was no hematoma and distal pulses were good. FINDINGS: LV: 119/11 LVEDP: 36 Ao:122/76 (96) EF: Ejection fraction was not assessed for contrast conservation ejection fraction was 15% by transthoracic echo. LM: Angiographically minimal luminal irregularities LAD: This is a relatively small vessel is 100% occluded after the first septal tool analyst there is left to left collaterals that fill the distal LAD long seen a run are used to evaluate this vessel is diffusely diseased distally. There is ostial 70% stenosis in the first diagonal. There is sluggish flow throughout the entire vessel (CRISTY II). LCx: This is a nondominant vessel. It is 1% occluded after the first obtuse marginal. There is left to left collaterals to the distal second obtuse marginal and distal AV groove portion of the left circumflex. RCA: This a dominant vessel has 3 high-grade stenoses in the proximal segment there is 90%. There is a 80-90% distally in the midsegment there are 70%. There is CRISTY II flow in the vessel. RFA/CHRIS: Right femoral iliac arteries are normal Total fluoroscopy time 2.9 minutes with total fluoroscopy dose 438 mGy a contrast exposure 98 cc of Omnipaque Assessment: 1. 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 Mild aortic insufficiency PLAN: 1. Consult cardiothoracic surgery to discuss options with the patient. He has advanced age of mild renal insufficiency low EF and targets to be assessed by the surgeons increased medical therapy at this time. I discussed with the patient and his . Implants: Mynx Anesthesia: moderate conscious sedation Surgeon / Physician: Misty Daugherty A And P Mechanic: none Estimated blood loss: none Specimens: other (Pleural fluid was sent for chemistries, culture, cytology) Condition: stable - Medications / Follow-up
--- NOTE | 2016-04-30 09:34 | EKG Report ---
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
[2016-04-30] MEDS: SPIRONOLACTONE 25 MG TABLET PO SCH (11:17)
[2016-04-30] MEDS: FUROSEMIDE 40 MG TABLET PO SCH ×2 (11:17→17:01)
[2016-04-30] MEDS: PANTOPRAZOLE 40 MG TABLET PO SCH (11:17)
--- NOTE | 2016-04-30 11:46 | Pathology Report from [facility] ---
ACCESSION # : [id number] PATIENT NAME : Shilo Joseph ORDERING DR : SUNIL TONG MD CLINICAL HX: Shortness of breath, Right pleural effusion. POST-OP DX: Same SPECIMEN INFO: Fluid,Pleural,Right - 1100 ml's straw colored, cloudy CLASS: II CLASS COMMENTS: Benign mesothelial cells with acute and chronic inflammation.CELL BLOCK: Same. CLASS LEGEND: CLASS 0 Material inadequate for diagnosis because of (see comment) CLASS I Absence of atypical or abnormal cells CLASS II Atypical Cytology but no evidence of malignancy CLASS III Cytology suggestive of but not conclusive for malignancy CLASS IV Cytology strongly suggestive of malignancy CLASS V Cytology conclusive for malignancy SERVICE DATE: 04/29/2016 REPORT DATE: 04/30/2016 PATHOLOGIST: Rodriguez Ding M.D. [facility] CENTERDwayne
[2016-04-30] MEDS: cefTRIAXone 1,000 MG in SODIUM CHLORIDE 0.9% 100 ML IV SCH (17:01)
[2016-05-01 04:57] LABS: Basophils % 0.5 % (0.0-0.8); Eosinophils # 0.1 10*3/uL (0.0-0.87); Eosinophils % 1.2 % (0.00-10.9); Hematocrit 35.1 VOL% (42.0-52.0); Hemoglobin 11.5 GM/DL (14.0-18.0); Immature Granulocytes % 0.4 %; Immature Granulocytes Absolute 0.02 #; Lymphocytes # 0.7 10*3/uL (1.4-4.0); Lymphocytes % 11.6 % (21.2-54.2); Mean Corpuscular HGB Conc 32.8 GM/DL (32-36); Mean Corpuscular Hemoglobin 30 PG (27-34); Mean Corpuscular Volume 91.4 FL (87-102); Mean Platelet Volume 11.8 FL (9.6-12.0); Monocytes # 0.8 10*3/uL (0.11-0.8); Monocytes % 13.9 % (1.7-12.7); Neutrophils # 4.1 10*3/uL (1.4-7.4); Neutrophils % 72.4 % (38.7-73.9); Platelet Count 181 T/CUMM (130-400); Red Blood Count 3.84 MC/CUMM (3.8-5.5); Red Cell Distribution Width 15.5 % (9.3-17.3); White Blood Count 5.7 T/CUMM (4-12)
[2016-05-01 05:33] LABS: Calcium 8.1 MG/DL (8.5-10.1); Potassium 3.8 MMOL/L (3.5-5.1)
[2016-05-01] MEDS: ASPIRIN EC 81 MG TABLET PO SCH (08:11)
[2016-05-01] MEDS: LISINOPRIL 2.5 MG TABLET PO SCH ×2 (08:11→21:17)
[2016-05-01] MEDS: CARVEDILOL 3.125 MG TABLET PO SCH (08:11)
[2016-05-01] MEDS: FUROSEMIDE 40 MG TABLET PO SCH ×2 (08:11→17:21)
[2016-05-01] MEDS: PANTOPRAZOLE 40 MG TABLET PO SCH (08:12)
[2016-05-01] MEDS: SPIRONOLACTONE 25 MG TABLET PO SCH (08:12)
--- NOTE | 2016-05-01 08:36 | Family Practice Progress Note ---
Family Practice - PN: Subj Interval history: Patient is an 85-year-old black man that has recent shortness of breath and came in with a chest x-ray that suggested heart failure. He had a large right effusion that was tapped and is consistent with a transudate. His ejection fraction on his echocardiogram was only about 30%. He says he is breathing better and is comfortable. He had heart catheterization this morning which revealed LVEDP approx 30% with CAD and Cardiology has consulted Cardiothoracic surgeon to discuss options with patient. He is stable otherwise at this point. Exam (Progress Note) - Constitutional Vitals: Period Temp Pulse Resp BP Sys/Morton Pulse Ox Last 24 Hr 96.3 F-117 F 86-101 16-20 90-121/51-94 91-97 Exam: GENERAL APPEARANCE: in mild distress, well developed, well nourished. SKIN: no suspicious lesions, warm and dry. HEAD: normocephalic, atraumatic. EYES: pupils equal, round, reactive to light and accommodation. EARS: normal. THROAT: clear. ORAL CAVITY: mucosa moist. NECK/THYROID: neck supple, full range of motion, no cervical lymphadenopathy. HEART: no murmurs, regular rate and rhythm, S1, S2 normal. LUNGS: clear to auscultation bilaterally. Much improved aeration ABDOMEN: normal, bowel sounds present, soft, nontender, nondistended. GENITOURINARY: deferred. EXTREMITIES: no clubbing, cyanosis, or edema. MUSCULOSKELETAL: normal, no swelling or deformity. NEUROLOGIC: nonfocal, motor strength normal upper and lower extremities , sensory exam intact. Results - Labs CBC & BMP: 05/01/16 04:14 05/01/16 04:14 Assessment and Plan (1) Recurrent right pleural effusion Status: Acute Assessment and plan: 04/28/2016pain admitting patient to get a CT of his chest and will get pulmonary to see him 04/29/2016: Pleural effusion drained it was noted to be transudate Current Visit: Yes (2) Dyspnea Status: Acute Assessment and plan: 04/28/2016 appreciate pulmonary illness case. Oxygen as necessary for shortness of breath until we can address the probable effusion 04/29/2016: Patient having significant decrease in dyspnea we will continue to monitor Current Visit: Yes (3) History of gastroesophageal reflux (GERD) Status: Chronic Assessment and plan: 04/28/2016 we will continue proton pump inhibitors 04/29/2016 history of GERD patient did not have any problems at this time Current Visit: Yes Quality Measures - VTE Contraindication to Pharmacological VTE Prophylaxis: High Risk of Bleeding Specialty Discharge - Follow Up or Referrals
--- NOTE | 2016-05-01 08:41 | EKG Report ---
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
--- NOTE | 2016-05-01 09:18 | Pulmonology Progress Note ---
Pulmonary - PN: Subj Interval history: This 85-year-old black male whom I am seeing for Dr. Eliel Ro who saw her first saw the patient on 04/29/2016. Patient had a right pleural effusion and shortness of breath. Chest x-ray suggested congestive heart failure. A pleural fluid specimen showed a transudate. This echo cardiogram showed a decreased ejection fraction. Patient had a cardiac catheterization. He has severe triple vessel heart disease and a severe cardiomyopathy. It is possible that he will need bypass surgery. The patient was seen along with a female family member who was asleep and did not wake up. Patient was lying flat in bed and was comfortable. He had no complaints and he had no new requests. Microbiology. No positive results. No evidence of infection in the pleural effusion. Lab. White count is 5700 with a normal differential. H&H 11.5/35.1. Platelets 181,000. Electrolytes are normal. Creatinine is 1.2 with a BUN of 17. Calcium is 8.1. Albumin is 2.7. Urine no evidence of infection Physical exam. Vital signs. See below. Afebrile. Psychiatric. Oriented 3 General. No distress lying flat. Neuro. Cranial nerves are grossly intact long track motor functions intact Chest. Clear Heart. No gallop Abdomen. Nondistended. Positive bowel sounds Lower extremities. Nothing to suggest deep venous thrombophlebitis. Neck. Symmetrical. No meningismus. Lymphatics. No submandibular cervical or supraclavicular adenopathy. The remainder the physical exam is noncontributory. Plan. 1. Continue present regimen 2. No changes were made today. Exam (Progress Note) - Constitutional Vitals: Period Temp Pulse Resp BP Sys/Morton Pulse Ox Last 24 Hr 96.3 F-117 F 86-101 16-20 90-121/51-94 91-97 Results - Labs CBC & BMP: 05/01/16 04:14 05/01/16 04:14 Specialty Discharge - Follow Up or Referrals
[2016-05-01] MEDS ORDERED: CLOPIDOGREL 300 MG TABLET PO ONE (09:36)
--- NOTE | 2016-05-01 09:39 | Cardiology Progress Note ---
Assessment and Plan - Time spent with patient Time spent with patient: Greater than 30 minutes (Discussion with the patient, chart review orders examination) (1) Aortic insufficiency Status: Chronic Assessment and plan: The chamber cavity is not enlarged as looks at least moderate by pressure half- time of the 200s it may be more acute and more severe than anticipated. Current Visit: Yes Qualifiers: Cardiac valve disease etiology: etiology unspecified Qualified Code(s): I35.1 - Nonrheumatic aortic (valve) insufficiency (2) Mitral regurgitation Status: Acute Assessment and plan: This is a likely ischemic in origin with a MECHANIC FOREMAN of the left circumflex Current Visit: Yes Qualifiers: Cardiac valve disease etiology: etiology unspecified Qualified Code(s): I34.0 - Nonrheumatic mitral (valve) insufficiency (3) Hypertension Status: Acute Current Visit: Yes Qualifiers: Hypertension type: essential hypertension Qualified Code(s): I10 - Essential (primary) hypertension (4) History of gastroesophageal reflux (GERD) Status: Chronic Current Visit: Yes (5) Ischemic cardiomyopathy Status: Acute Assessment and plan: Escalate medical therapy and attempt PCI Current Visit: Yes (6) 3-vessel coronary artery disease Status: Acute Assessment and plan: As per history of present illness the patient is at prohibitive risk for surgical intervention. Based on potential benefit. We will proceed with maximizing percutaneous options. Current Visit: Yes Cardiology - PN: Subj Interval history: Mr. Joseph feels better today. Access site is good. I had a discussion with Dr. Olmedo and Dr. Zimmer both concerning the patient's angiogram. There appears to be an obvious increased mortality with potential little benefit with the patient's distal targets for improvement in his overall symptoms. His mortality could be hastened with intervention surgically given his operative risk without a lot of obvious gain. Given these factors I think it is reasonable to proceed with percutaneous coronary mention of the right coronary artery the high-grade lesions to help maximize myocardial blood supply and then consider addressing the LAD MECHANIC FOREMAN. I discussed these options with the patient today and he wishes to proceed I have told him we would schedule for Tuesday. His had to go home and I will discuss with her tomorrow. I will load the patient with dual antiplatelet therapy in anticipation of that procedure while steadily increasing his heart failure regimen. He clearly feels better now than he did on arrival with a medical therapy. Exam (Progress Note) - Constitutional Vitals: Period Temp Pulse Resp BP Sys/Morton Pulse Ox Last 24 Hr 96.3 F-117 F 86-101 16-20 90-121/51-94 91-97 General appearance: normal weight (He is down significantly in weight since admission despite positive fluid balance which is obviously inaccurate) - Head Head exam: Present: normal inspection - Eye Eye exam: Present: EOMI Pupils: Present: SAEED - ENT ENT exam: Present: other (He has JVD approximately 12 cm water) - Respiratory Respiratory exam: Present: other (Diminished breath sounds on the right he has no rales) - Cardiovascular Cardiovascular exam: Present: regular rate and rhythm (PMI is laterally displaced) - GI/Abdominal GI/Abdominal exam: Present: normal bowel sounds - Extremities Exam Extremities exam: Present: other (Cath site looks good). Absent: edema - Back Exam Back exam: Present: normal inspection - Neurological Exam Neurological exam: Present: alert, oriented X3 - Psychiatric Psychiatric exam: Present: normal affect, normal mood - Skin Skin exam: Present: normal color, warm, dry Result/EKG - Labs CBC & BMP: 05/01/16 04:14 05/01/16 04:14 Labs: Laboratory Results - last 24 hr 05/01/16 05/01/16 04:14 04:14 WBC 5.7 RBC 3.84 Hgb 11.5 L Hct 35.1 L MCV 91.4 MCH 30 MCHC 32.8 RDW 15.5 Plt Count 181 MPV 11.8 Neut % (Auto) 72.4 Lymph % (Auto) 11.6 L [place] % (Auto) 13.9 H Eos % (Auto) 1.2 Baso % (Auto) 0.5 Neut # (Auto) 4.1 Lymph # (Auto) 0.7 L [place] # (Auto) 0.8 Eos # (Auto) 0.1 Baso # (Auto) 0.0 Immature Gran % 0.4 Nucleated RBC % 0.0 Immature Gran # 0.02 Nucleated RBCs # 0.00 Sodium 143 Potassium 3.8 Chloride 105 Carbon Dioxide 28 Anion Gap 13.8 BUN 17 Creatinine 1.20 GFR Calculation 67 BUN/Creatinine Ratio 14.00 Glucose 92 Calculated Osmolality 286.0 Calcium 8.1 L Quality Measures - VTE Contraindication to Pharmacological VTE Prophylaxis: High Risk of Bleeding Specialty Discharge - Follow Up or Referrals
--- NOTE | 2016-05-01 14:21 | Family Practice Progress Note ---
Family Practice - PN: Subj Interval history: Patient states that he is doing well today. Denies any chest pain or shortness of breath. Has been ambulating in the room. Denies any new complaints. Patient is scheduled for cardiac catheterization on Tuesday. Physical examination is stable. We will continue present treatment plan Exam (Progress Note) - Constitutional Vitals: Period Temp Pulse Resp BP Sys/Morton Pulse Ox Last 24 Hr 96.3 F-117 F 91-101 16-20 90-121/51-94 94-97 Results - Labs CBC & BMP: 05/01/16 04:14 05/01/16 04:14 Quality Measures - VTE Contraindication to Pharmacological VTE Prophylaxis: High Risk of Bleeding Specialty Discharge - Follow Up or Referrals
[2016-05-01] MEDS: cefTRIAXone 1,000 MG in SODIUM CHLORIDE 0.9% 100 ML IV SCH (17:21)
--- NOTE | 2016-05-01 18:43 | Cardiothoracic Consult ---
Assessment and Plan - Time spent with patient Time spent with patient: Greater than 30 minutes (1) 3-vessel coronary artery disease Status: Acute Assessment and plan: Risk Model and Variables - STS Adult Cardiac Surgery Database Version 2.81 RISK SCORES About the STS Risk Calculator Procedure: CAB Only Risk of Mortality: 9.707% Morbidity or Mortality: 45.053% Long Length of Stay: 31.542% Short Length of Stay: 6.998% Permanent Stroke: 3.913% Prolonged Ventilation: 33.436% DSW Infection: 1.766% Renal Failure: 15.592% Reoperation: 16.594% 85-year-old gentleman with severe multivessel coronary artery disease. After reviewing his cath and discussing it with the patient and Dr. Le I feel that the patient is a very high risk for surgery as noted by his STS risk calculator. Due to his advanced age as well as his comorbidities. However even after reviewing his cath I feel that due to the complete occlusion he does not likely to benefit from surgical intervention. This was explained in details to the patient and the family. They understand and agree. This was also relayed to Dr. Le in details. Current Visit: Yes History of Present Illness - Data of Consult Patient: new to practice Consult date: 05/01/16 Requesting Physician: Misty Daugherty - Consult Narrative Reason for consult: Severe coronary artery disease History of present illness: Mr. Joseph is a 85 year old male with severe coronary artery disease. He has complete occlusion of his LAD, with severe stenosis of his circumflex as well as right coronary arteries. I was consulted for possible evaluation for CABG. He also does have aortic insufficiency as well as mitral insufficiency and cardiomyopathy. CC: Mario Alberto Hardy, DO - Home Medications and Allergies Home Medications: Home Medications Medication Instructions Recorded Confirmed Type Dexlansoprazole [Dexilant] 60 mg PO DAILY 04/29/16 04/29/16 History Allergies/Adverse Reactions: Allergies Allergy/AdvReac Type Severity Reaction Status Date / Time No Known Allergies Allergy Verified 04/28/16 19:06 12 point system: reviewed and no additional remarkable complaints except as stated (hpi) Medical,Surgical,& Family Hx - Medical History Cardio: History of: Hypertension Gastrointestinal: History of: GERD - Social History Smoking Status: Former smoker Frequency of Alcohol Use: None Type of Drug Use: None Physical Examination Vital Signs Resp 18 04/28/16 18:59 General: Present: Appears Well HEENT: Present: PERRL Neck: Present: Supple Neck Cardiac: Present: Reg Rate and Rhythm Lungs: Present: Normal Exam Neuro: Present: Cranial Nerve 2-12 Intact Abdomen: Present: Soft, Active Bowel Sounds Result/EKG - Labs CBC & BMP: 05/01/16 04:14 05/01/16 04:14 Labs: Laboratory Results - last 24 hr 05/01/16 05/01/16 04:14 04:14 WBC 5.7 RBC 3.84 Hgb 11.5 L Hct 35.1 L MCV 91.4 MCH 30 MCHC 32.8 RDW 15.5 Plt Count 181 MPV 11.8 Neut % (Auto) 72.4 Lymph % (Auto) 11.6 L [place] % (Auto) 13.9 H Eos % (Auto) 1.2 Baso % (Auto) 0.5 Neut # (Auto) 4.1 Lymph # (Auto) 0.7 L [place] # (Auto) 0.8 Eos # (Auto) 0.1 Baso # (Auto) 0.0 Immature Gran % 0.4 Nucleated RBC % 0.0 Immature Gran # 0.02 Nucleated RBCs # 0.00 Sodium 143 Potassium 3.8 Chloride 105 Carbon Dioxide 28 Anion Gap 13.8 BUN 17 Creatinine 1.20 GFR Calculation 67 BUN/Creatinine Ratio 14.00 Glucose 92 Calculated Osmolality 286.0 Calcium 8.1 L Quality Measures - VTE Contraindication to Pharmacological VTE Prophylaxis: High Risk of Bleeding Specialty Discharge - Follow Up or Referrals
[2016-05-01] MEDS: CARVEDILOL 6.25 MG TABLET PO SCH (21:17)
[2016-05-02 05:28] LABS: Basophils % 0.3 % (0.0-0.8); Eosinophils # 0.1 10*3/uL (0.0-0.87); Eosinophils % 1.4 % (0.00-10.9); Hematocrit 36.6 VOL% (42.0-52.0); Hemoglobin 12.1 GM/DL (14.0-18.0); Immature Granulocytes % 0.3 %; Immature Granulocytes Absolute 0.02 #; Lymphocytes # 0.9 10*3/uL (1.4-4.0); Lymphocytes % 13.7 % (21.2-54.2); Mean Corpuscular HGB Conc 33.1 GM/DL (32-36); Mean Corpuscular Hemoglobin 30 PG (27-34); Mean Corpuscular Volume 89.9 FL (87-102); Mean Platelet Volume 11.4 FL (9.6-12.0); Monocytes # 0.8 10*3/uL (0.11-0.8); Monocytes % 12.3 % (1.7-12.7); Neutrophils # 4.6 10*3/uL (1.4-7.4); Platelet Count 186 T/CUMM (130-400); Red Blood Count 4.07 MC/CUMM (3.8-5.5); Red Cell Distribution Width 15.2 % (9.3-17.3); White Blood Count 6.4 T/CUMM (4-12)
[2016-05-02 05:51] LABS: Calcium 8.4 MG/DL (8.5-10.1); Osmolality,Calculated 279.4 MOS/KG (273-304); Potassium 3.9 MMOL/L (3.5-5.1)
[2016-05-02] MEDS: CLOPIDOGREL 75 MG TABLET PO SCH (09:09)
[2016-05-02] MEDS: CARVEDILOL 6.25 MG TABLET PO SCH ×2 (09:09→21:31)
[2016-05-02] MEDS: PANTOPRAZOLE 40 MG TABLET PO SCH (09:09)
[2016-05-02] MEDS: FUROSEMIDE 40 MG TABLET PO SCH ×2 (09:09→17:17)
[2016-05-02] MEDS: LISINOPRIL 2.5 MG TABLET PO SCH ×2 (09:09→21:31)
[2016-05-02] MEDS: ASPIRIN EC 81 MG TABLET PO SCH (09:09)
[2016-05-02] MEDS: SPIRONOLACTONE 25 MG TABLET PO SCH (09:09)
[2016-05-02] MEDS ORDERED: diphenhydrAMINE CAP 25 MG CAPSULE PO ONE (09:34)
[2016-05-02] MEDS ORDERED: DIAZEPAM 5 MG TABLET PO ONE (09:34)
[2016-05-02] MEDS ORDERED: MAGNESIUM SULF RIDER 2 GM in PREMIX 1 EACH IV PRN (09:34)
[2016-05-02] MEDS ORDERED: POTASSIUM CHLORIDE RIDER 10 MEQ in PREMIX 1 EACH IV PRN (09:34)
--- NOTE | 2016-05-02 09:41 | Cardiology Progress Note ---
Assessment and Plan (1) Aortic insufficiency Status: Chronic Assessment and plan: This appears to be only mild by aortic root angiography Current Visit: Yes Qualifiers: Cardiac valve disease etiology: etiology unspecified Qualified Code(s): I35.1 - Nonrheumatic aortic (valve) insufficiency (2) Mitral regurgitation Status: Acute Assessment and plan: This is a likely ischemic in origin with a DOLL WIG MAKER of the left circumflex Current Visit: Yes Qualifiers: Cardiac valve disease etiology: etiology unspecified Qualified Code(s): I34.0 - Nonrheumatic mitral (valve) insufficiency (3) Hypertension Status: Acute Current Visit: Yes Qualifiers: Hypertension type: essential hypertension Qualified Code(s): I10 - Essential (primary) hypertension (4) History of gastroesophageal reflux (GERD) Status: Chronic Current Visit: Yes (5) Ischemic cardiomyopathy Status: Acute Assessment and plan: Escalate medical therapy and attempt PCI on 05/03/2016 Current Visit: Yes (6) 3-vessel coronary artery disease Status: Acute Assessment and plan: As per history of present illness the patient is at prohibitive risk for surgical intervention. Based on potential benefit. We will proceed with maximizing percutaneous options. Current Visit: Yes Cardiology - PN: Subj Interval history: Mr. Joseph has improved with medical therapy. His is in the room today and I discussed with him again about risk benefits and options of proceeding. We will proceed tomorrow with anticipated PCI of the 3 areas in the RCA if all goes well consider DOLL WIG MAKER PCI of the LAD. I do not think given the length of stenosis and the sub-optimal takeoff of the small circumflex that it would be advantageous to proceed with attempting DOLL WIG MAKER PCI at that location. Patient is willing to proceed we Angio-Seal his right femoral artery before we anticipate going to the left femoral artery. The patient has been preloaded with clopidogrel and he is ready to proceed. Exam (Progress Note) - Constitutional Vitals: Period Temp Pulse Resp BP Sys/Morton Pulse Ox Last 24 Hr 98.0 F-98.7 F 83-96 16-20 105-130/46-87 90-100 General appearance: normal weight - Head Head exam: Present: normal inspection - Eye Eye exam: Present: EOMI Pupils: Present: SAEED - Respiratory Respiratory exam: Present: rales (This is better) - Cardiovascular Cardiovascular exam: Present: regular rate and rhythm (PMI is laterally displaced) - GI/Abdominal GI/Abdominal exam: Present: normal bowel sounds - Extremities Exam Extremities exam: Present: normal inspection - Back Exam Back exam: Present: normal inspection - Neurological Exam Neurological exam: Present: alert, oriented X3 - Psychiatric Psychiatric exam: Present: normal affect, normal mood - Skin Skin exam: Present: normal color, warm, dry Result/EKG - Labs CBC & BMP: 05/02/16 05:11 05/02/16 05:11 Labs: Laboratory Results - last 24 hr 05/02/16 05/02/16 05:11 05:11 WBC 6.4 RBC 4.07 Hgb 12.1 L Hct 36.6 L MCV 89.9 MCH 30 MCHC 33.1 RDW 15.2 Plt Count 186 MPV 11.4 Neut % (Auto) 72.0 Lymph % (Auto) 13.7 L Ward % (Auto) 12.3 Eos % (Auto) 1.4 Baso % (Auto) 0.3 Neut # (Auto) 4.6 Lymph # (Auto) 0.9 L Ward # (Auto) 0.8 Eos # (Auto) 0.1 Baso # (Auto) 0.0 Immature Gran % 0.3 Nucleated RBC % 0.0 Immature Gran # 0.02 Nucleated RBCs # 0.00 Sodium 140 Potassium 3.9 Chloride 102 Carbon Dioxide 27 Anion Gap 14.9 BUN 16 Creatinine 1.30 GFR Calculation 60 BUN/Creatinine Ratio 12.00 Glucose 104 Calculated Osmolality 279.4 Calcium 8.4 L Quality Measures - VTE Contraindication to Pharmacological VTE Prophylaxis: High Risk of Bleeding Specialty Discharge - Follow Up or Referrals
--- NOTE | 2016-05-02 10:32 | Pulmonology Progress Note ---
Pulmonary - PN: Subj Interval history: This 85-year-old black male whom I am seeing for Dr. Eliel Ro who saw her first saw the patient on 04/29/2016. Patient had a right pleural effusion and shortness of breath. Chest x-ray suggested congestive heart failure. A pleural fluid specimen showed a transudate. This echo cardiogram showed a decreased ejection fraction. Patient had a cardiac catheterization. He has severe triple vessel heart disease and a severe cardiomyopathy. It is possible that he will need bypass surgery. The patient was seen along with a female family member who was asleep and did not wake up. Patient was lying flat in bed and was comfortable. He had no complaints and he had no new requests. Microbiology. No positive results. No evidence of infection in the pleural effusion. Lab. White count is 5700 with a normal differential. H&H 11.5/35.1. Platelets 181,000. Electrolytes are normal. Creatinine is 1.2 with a BUN of 17. Calcium is 8.1. Albumin is 2.7. Urine no evidence of infection 05/02/2016. This patient is up and moving about. He is alert and oriented. He denies any pain. He says his breathing is doing fine. There are no new positive cultures. Electrolytes are normal. Creatinine is 1.3. BUN is 16. CBC is stable. Physical exam. Vital signs. See below. Afebrile. Psychiatric. Oriented 3 General. No distress lying flat. Neuro. Cranial nerves are grossly intact long track motor functions intact Chest. Clear Heart. No gallop Abdomen. Nondistended. Positive bowel sounds Lower extremities. Nothing to suggest deep venous thrombophlebitis. Neck. Symmetrical. No meningismus. Lymphatics. No submandibular cervical or supraclavicular adenopathy. The remainder the physical exam is noncontributory. Plan. 1. Continue present regimen 2. No changes were made today. 3. 05/02/2016. Patient is for cardiac catheterization in the morning. Exam (Progress Note) - Constitutional Vitals: Period Temp Pulse Resp BP Sys/Morton Pulse Ox Last 24 Hr 98.0 F-98.7 F 83-96 16-20 105-130/46-87 90-100 Results - Labs CBC & BMP: 05/02/16 05:11 05/02/16 05:11 Specialty Discharge - Follow Up or Referrals
--- NOTE | 2016-05-02 14:05 | Family Practice Progress Note ---
Family Practice - PN: Subj Interval history: Patient is doing well at present. He is ambulating in the room and in any current complaints. His vitals remained stable. His a.m. lab studies were normal. No new problems identified. Patient is scheduled for cardiac catheterization with angioplasty in a.m.. We will continue present treatment plan Exam (Progress Note) - Constitutional Vitals: Period Temp Pulse Resp BP Sys/Morton Pulse Ox Last 24 Hr 98.0 F-99.5 F 83-98 16-20 105-130/46-87 90-100 Results - Labs CBC & BMP: 05/02/16 05:11 05/02/16 05:11 Quality Measures - VTE Contraindication to Pharmacological VTE Prophylaxis: High Risk of Bleeding Specialty Discharge - Follow Up or Referrals
[2016-05-02] MEDS: cefTRIAXone 1,000 MG in SODIUM CHLORIDE 0.9% 100 ML IV SCH (17:18)
[2016-05-02] MEDS ORDERED: ZALEPLON 5 MG CAPSULE PO PRN (23:05)
[2016-05-03] MEDS ORDERED: SODIUM CHLORIDE 0.9% 1,000 ML IV SCH (05:00)
[2016-05-03 05:31] LABS: Basophils # 0.1 10*3/uL (0.0-0.2); Basophils % 0.8 % (0.0-0.8); Eosinophils # 0.1 10*3/uL (0.0-0.87); Eosinophils % 1.5 % (0.00-10.9); Immature Granulocytes % 0.2 %; Immature Granulocytes Absolute 0.01 #; Lymphocytes # 0.8 10*3/uL (1.4-4.0); Lymphocytes % 12.9 % (21.2-54.2); Mean Corpuscular HGB Conc 33.3 GM/DL (32-36); Mean Corpuscular Hemoglobin 30 PG (27-34); Mean Platelet Volume 11.4 FL (9.6-12.0); Monocytes % 15.3 % (1.7-12.7); Neutrophils # 4.3 10*3/uL (1.4-7.4); Neutrophils % 69.3 % (38.7-73.9); Platelet Count 192 T/CUMM (130-400); Red Cell Distribution Width 14.9 % (9.3-17.3); White Blood Count 6.2 T/CUMM (4-12)
[2016-05-03 05:48] LABS: Calcium 8.1 MG/DL (8.5-10.1); Osmolality,Calculated 281.3 MOS/KG (273-304); Potassium 3.9 MMOL/L (3.5-5.1)
[2016-05-03] MEDS: SPIRONOLACTONE 25 MG TABLET PO SCH ×2 (06:51→08:24)
[2016-05-03] MEDS: LISINOPRIL 2.5 MG TABLET PO SCH ×2 (06:51→08:24)
[2016-05-03] MEDS: CARVEDILOL 6.25 MG TABLET PO SCH ×3 (06:51→21:41)
[2016-05-03] MEDS: ASPIRIN EC 81 MG TABLET PO SCH ×2 (06:51→08:24)
[2016-05-03] MEDS ORDERED: diphenhydrAMINE CAP 25 MG CAPSULE PO ONE (07:00)
[2016-05-03] MEDS ORDERED: DIAZEPAM 5 MG TABLET PO ONE (07:00)
--- NOTE | 2016-05-03 07:06 | History and Physical Update ---
Sedation H&P Update - History and Physical H&P was reviewed, the patient examined and there: are no changes in the patients condition since last H&P was completed. - Dictation Physical: refer to H&P completed by admitting physician - Physical Exam Mental Status: alert and oriented Heart: regular rate and rhythm Lung: clear to auscultation Abdomen: within normal limits Vitals: within normal limits - Sedation Plan for Sedation: moderate Patient Consent: Procedure disscussed with patient and patinet has consented., Risks and benefits were discussed with patient,including infection,, bleeding, injury to surrounding structures, seizure, temporary nerve, Patient understands and accepts potential risks/benefits and agrees to, proceed. ASA Class: IV Airway Assessment: Class II: Soft palate, uvula, fauces visible
[2016-05-03] MEDS ORDERED: LIDOCAINE 1% 20 ML VIAL ONE (07:30)
[2016-05-03] MEDS ORDERED: HEPARIN/NACL 0.9% 2 UNITS/ML 1,000 ML IV ONE (07:30)
[2016-05-03] MEDS ORDERED: HEPARIN/NACL 0.9% 2 UNITS/ML 500 ML IV ONE ×2 (07:32→08:31)
[2016-05-03] MEDS ORDERED: fentaNYL 100 MCG/2 ML VIAL ONE (07:35)
[2016-05-03] MEDS ORDERED: MIDAZOLAM 2 MG/2 ML VIAL ONE ×2 (07:35→08:47)
[2016-05-03] MEDS ORDERED: HEPARIN 5,000 UNIT/1 ML VIAL ONE ×2 (07:42→08:29)
[2016-05-03] MEDS ORDERED: NITROGLYCERIN DRIP 50 MG/250 ML BOTTLE IV ONE (09:06)
[2016-05-03] MEDS ORDERED: CLOPIDOGREL 300 MG TABLET ONE (09:31)
[2016-05-03] MEDS ORDERED: CLOPIDOGREL 300 MG TABLET PO ONE (09:36)
[2016-05-03] MEDS ORDERED: SODIUM BICARB INJ 50 MEQ in SODIUM CHLORIDE 0.45% 1,000 ML IV SCH (10:00)
--- NOTE | 2016-05-03 10:00 | Cardiology Operative Report ---
Date of Procedure:: 05/03/16 Pre-op diagnosis: coronary artery disease Post-op diagnosis: other (Large right pleural effusion that is probably a transudate) Procedure: Procedures: 1. Percutaneous coronary intervention of the proximal mid and distal RCA with drug-eluting stents as below. There were 3 sequential 90% stenosis lesions in the proximal mid and distal RCA all treated with drug-eluting stents. There was CRISTY II flow in the vessel pre-PCI and CRISTY-3 flow in the vessel post PCI. The stents deployed were all Xience Alpine and from distal to proximal they are 2.25 x 18, 3.0 x 12 and 3.5 x 18 mm. 2. Percutaneous coronary intervention of the mid and distal left anterior descending artery with drug-eluting stents as below 2. There is 100% long occlusion in the mid LAD that is a PORCELAIN WAXER. There was CRISTY 0 flow in the vessel pre -PCI and 100% occlusion. Post PCI there was 0% residual stenosis with CRISTY-3 flow in the stented segment but to me 1 flow in the distal segments. There is a very small type a dissection in the distal LAD. The stents deployed were Xience Alpine from distal to proximal 2.25 x 28 overlapping with a 3.0 x 23 mm. This area was postdilated with a 2.5 and 3.0 NC Quantum's to high pressure atmospheres. After signed informed consent was taken from the patient was taken the cardiac catheterization lab for planned planned PCI of the RCA and possible LAD. The right femoral artery had been Angio-Seal the week prior therefore the left femoral artery was used. Timeout was recorded and 1% lidocaine was infiltrated the skin and subcu tissue overlying the left femoral artery modified Seldinger technique was utilized and accessed R no 3 5 J-wire was advanced and central aorta small skin incision was made a 6 Malian sheath was placed over the wire. This time the patient received 5000 units of intravenous heparin and ACT was checked. It was amenable for PCI. A JR 4 6 [place]ian guide was advanced over the wire the right coronary slightly engaged with a significant amount of difficulty a pro-water wire was advanced into the posterior lateral branch. This area was then ballooned all 3 areas were ballooned with a 2.0 x 12 mm [place] balloon to maximum 14 vanda. The balloon was removed and attempts to pass the 2 5 x 18 mm Xience stent were unsuccessful luis wire was placed in the area was again re-ballooned with a 2.0 x 12 mm [place] balloon and ultimately the stent was deployed. Stent balloon was removed the mid segment was stented with a 3 oh by 12 and the proximal a 3.5 x 18 mm Xience Alpine drug-eluting stent. All 3 areas were then postdilated high atmospheres with size appropriate NC balloons. Wire was removed 2 orthogonal shots were obtained. At this time the JR 4 guide was advanced over the wire the sheath was aspirated and flushed ACT was rechecked. Additional heparin was given. Now an EBU 4.0 guiding cath was advanced over the wire in the central aorta the left main coronary was selectively engaged. An exchange length Mobibeam pro-water wire was advanced area of 100% stenosis and into a short segment of this occluded segment. Then a Turnpike catheter was advanced over this wire with the idea of exchanging for a more lubricious wire. A Fielder FC was attempted to cross the stenosis significant amount of progress could be made however it was going into a small branch with only a very small residual percent of the high-grade PORCELAIN WAXER left in the LAD. The Fielder FC was removed and the Turnpike had been advanced to this area that could be seen angiographically the previously used pro-water then was directed and went easily into the LAD. The Turnpike was used to follow Turnpike was removed. At this time multiple inflations with a 1.5 x 20 mm mini trek followed by 2.0 x 25 mm mini trek inflations to maximum 17 vanda were made along the mid and early distal part of the LAD. Ultimately flow was returned to the vessel. The splint was removed and a 2.25 x 28 mm Xience Alpine drug-eluting stent was advanced to the proximal distal portion of the LAD. The distal wire was then pulled back inadvertently and there was difficulty re-advancing the wire. There appear to be a small dissection plane. This was distal to the stent however. Now the second 3 oh by 23 mm Xience Alpine was used to overlap proximally. The 100% occluded portion of the vessel was adequately fixed however there was this distal dissection. Ultimately with the use of a postdilatation balloon the wire was read directed back into the distal LAD. Postdilatation of the previously deployed stents were performed to high pressure atmospheres with a 2.5 x 20 and 3.0 x 15 mm NC Quantum balloon. Now that the wire was established in the distal segment back into the LAD proper the previously used 1.5 x 20 mm mini trach was taken and a prolonged inflation of greater than 1 minute was performed over the dissection area. Nitroglycerin was given. There was a small stain there was nonflow limiting a type a dissection. The entire portion and branches of the terminal branches of the LAD were visualized they were very small. They did appear to respond to nitroglycerin however this was less than ideal vessels. They are diffusely and heavily diseased given the contrast burden and the x-ray exposure was felt best to terminate the procedure at this point the wire was removed and 2 orthogonal views were obtained. The EBU was exchanged over the wire the sheath was aspirated and flushed. [employer] reviewed the films. Left femoral iliac angiography performed area was reprepped with ChloraPrep and minx closure device was used in the left femoral arteriotomy. ,l total contrast exposure for this PORCELAIN WAXER and negative PCI was 250 cc of Visipaque. Total contrast exposure was 2008 mGy and total diagnostic fluoroscopy time was 21.9 minutes. Assessment: 1. Severe triple-vessel disease status post successful PCI of the RCA lesions and PORCELAIN WAXER of the LAD as described above 2. Ischemic cardiomyopathy 3. Renal insufficiency Plan: 1. Lifelong dual antiplatelet therapy and minimum of 1 year 2. Risk factor modification cardiac rehabilitation 3. Monitoring the ICU for complications patient is very high risk for complications given a PORCELAIN WAXER PCI and contrast radiation exposure. I discussed with his via phone and will provide her with images later. Patient tolerated the procedure with no immediate complications apparent. Implants: The following Xience drug-eluting stents were deployed: 1. Distal RCA 2.5 x 18 mm Alpine 2. Mid RCA 3.0 x 12 mm Alpine 3. Proximal RCA 3.5 x 18 mm Alpine 4. Distal LAD 2.25 x 28 mm Alpine 5. Mid LAD 3.0 x 23 mm Alpine All the above stents were postdilated to high pressure atmospheres with their sized appropriate NC balloons Anesthesia: moderate conscious sedation Surgeon / Physician: Misty Daugherty Shirt Ironer: none Estimated blood loss: none Specimens: other (Pleural fluid was sent for chemistries, culture, cytology) Condition: stable
[2016-05-03] MEDS: CLOPIDOGREL 75 MG TABLET PO SCH (10:53)
[2016-05-03] MEDS: PANTOPRAZOLE 40 MG TABLET PO SCH (11:02)
[2016-05-03 11:03] LABS: Apearance,Urine CLEAR (Clear); Bilirubin,Urine Negative (Negative); Blood, Urine Negative (Negative); Glucose,Urine (UA) Negative (Negative); Ketones,Urine 5 mg/dL (Negative); Nitrite,Urine Negative (Negative); Protein,Urine Negative; RBC,Urine 1 /HPF (0-4); Urine Color Yellow (Yellow); Urine Specific Gravity 1.056 (1.001-1.035); Urine Urobilinogen < 2.0 EU/DL (0.2-1.0); WBC,Urine <1 /HPF (0-6)
--- NOTE | 2016-05-03 15:59 | Pulmonology Progress Note ---
Pulmonary - PN: Subj Interval history: Patient is an 85-year-old black man that has recent shortness of breath and came in with a chest x-ray that suggested heart failure. He had a large right effusion that was tapped and is consistent with a transudate. His ejection fraction on his echocardiogram was only about 30%. He is found to have significant coronary artery disease and not felt to be a surgical candidate. Today he went back to [facility] and had multiple stents done. He looks comfortable lying flat in bed. He feels like his breathing is still doing fairly well. Overall his vital signs are stable. Exam (Progress Note) - Constitutional Vitals: Period Temp Pulse Resp BP Sys/Morton Pulse Ox Last 24 Hr 97 F-99.1 F 74-95 13-26 96-147/57-98 92-98 Exam: General appearance: normal weight, no acute distress, other (He is an elderly man that looks quite healthy. He is comfortable lying in bed today.) - Head Head exam: Present: normal inspection, normocephalic - Eye Eye exam: Present: EOMI. Absent: scleral icterus Pupils: Present: SAEED - ENT ENT exam: Present: normal exam - Neck Neck exam: Present: normal inspection. Absent: lymphadenopathy, thyromegaly - Respiratory Respiratory exam: Present: He has fairly good breath sounds bilaterally is moving air fairly well with minimal crackles. - Cardiovascular Cardiovascular exam: Present: gallop (He has a gallop rhythm.), regular rate and rhythm, tachycardia. Absent: systolic murmur - GI/Abdominal GI/Abdominal exam: Present: normal bowel sounds, hernia (Has a right inguinal hernia), soft. Absent: organomegaly, tenderness - Extremities Exam Extremities exam: Absent: calf tenderness, edema - Neurological Exam Neurological exam: Present: alert, oriented X3, CN II-XII intact - Psychiatric Psychiatric exam: Present: normal affect - Skin Skin exam: Present: warm, dry Results - Labs CBC & BMP: 05/03/16 05:09 05/03/16 05:09 Assessment and Plan (1) Recurrent right pleural effusion Status: Acute Assessment and plan: The patient has actually bilateral pleural effusions worse on the right. Pleural fluid on the right is a transudate. This is mainly due to heart failure. He looks like he is breathing better now. Current Visit: Yes (2) Dyspnea Status: Acute Assessment and plan: He is better today and does have a decreased ejection fraction on echo. He has significant coronary artery disease on cath. He will continue treatment of his heart failure Current Visit: Yes (3) History of gastroesophageal reflux (GERD) Status: Chronic Assessment and plan: He will continue treatment for reflux Current Visit: Yes Specialty Discharge - Follow Up or Referrals
[2016-05-04 03:12] LABS: Basophils % 0.4 % (0.0-0.8); Eosinophils # 0.1 10*3/uL (0.0-0.87); Eosinophils % 1.3 % (0.00-10.9); Immature Granulocytes % 0.4 %; Immature Granulocytes Absolute 0.03 #; Lymphocytes # 0.7 10*3/uL (1.4-4.0); Lymphocytes % 10.5 % (21.2-54.2); Mean Corpuscular HGB Conc 33.3 GM/DL (32-36); Mean Corpuscular Hemoglobin 30 PG (27-34); Mean Corpuscular Volume 90.7 FL (87-102); Mean Platelet Volume 11.2 FL (9.6-12.0); Monocytes # 0.9 10*3/uL (0.11-0.8); Monocytes % 13.3 % (1.7-12.7); Neutrophils % 74.1 % (38.7-73.9); Platelet Count 179 T/CUMM (130-400); Red Blood Count 3.64 MC/CUMM (3.8-5.5); Red Cell Distribution Width 14.7 % (9.3-17.3); White Blood Count 6.7 T/CUMM (4-12)
[2016-05-04 03:45] LABS: Potassium 3.5 MMOL/L (3.5-5.1)
--- NOTE | 2016-05-04 06:46 | Event Note ---
The patient looks good this morning. His labs are good and his cath site looks good. I think he may safely be discharged today. I will increase his beta mac. He has experienced a good diuresis overnight with no increase in Rx. Follow up with me in 1 week.
--- NOTE | 2016-05-04 07:49 | Cardiology Progress Note ---
<Jeannette Swartz - Last Filed: 05/04/16 09:57> Assessment and Plan (1) 3-vessel coronary artery disease Status: Chronic Assessment and plan: Patient is status post heart catheterization yesterday per Dr. Daugherty with successful PCI to distal RCA, mid RCA, proximal RCA and [employer]ERK of the LAD. Patient is doing well post-cath and has been without complications. Left groin is soft and without bleeding, hematoma and bruit. Distal pulses present. Importance of compliance with dual antiplatelet therapy has been discussed with the patient. He verbalizes understanding. Will add statin at this time for further risk stratification. Patient is stable for discharge from a cardiology standpoint. Patient will follow with Dr. Daugherty in 1 week. Current Visit: Yes (2) Hypertension Status: Chronic Assessment and plan: This is currently well controlled. Will continue current plan of care. Current Visit: Yes Qualifiers: Hypertension type: essential hypertension Qualified Code(s): I10 - Essential (primary) hypertension (3) Ischemic cardiomyopathy Status: Chronic Assessment and plan: Echo April 29, 2016 revealed an ejection fraction of 30%. Patient is now status post PCI. Medications have been reviewed. Patient is on good heart failure regimen. Continue beta-mac, MIKE inhibitor, spironolactone and Lasix. Patient will follow with Dr. Daugherty in 1 week. Electrolytes will be checked at that time. Current Visit: Yes (4) Mitral regurgitation Status: Chronic Current Visit: Yes Qualifiers: Cardiac valve disease etiology: etiology unspecified Qualified Code(s): I34.0 - Nonrheumatic mitral (valve) insufficiency (5) Aortic insufficiency Status: Chronic Assessment and plan: This appears to be only mild by aortic root angiography Current Visit: Yes Qualifiers: Cardiac valve disease etiology: etiology unspecified Qualified Code(s): I35.1 - Nonrheumatic aortic (valve) insufficiency (6) History of gastroesophageal reflux (GERD) Status: Chronic Assessment and plan: This is clinically stable. Continue current plan of care. Current Visit: Yes Cardiology - PN: Subj Interval history: Patient was seen and examined in the CCU. Patient was found to have significant three-vessel coronary artery disease. However, Dr. Olmedo felt the patient was not a good surgical candidate. He is status post heart catheterization yesterday by Dr. Daugherty with successful PCI to distal RCA, mid RCA, proximal RCA and [employer]ERK of the LAD. He is doing well post-cath without any complications. Left groin is soft without bleeding, hematoma and bruit. Distal pulses present. Discussed the importance of compliance with dual antiplatelet therapy. Patient verbalizes understanding. Patient did well overnight and is without complaints this morning. He denies chest pain, heaviness and tightness. He also denies shortness of breath. Labs have been reviewed. Electrolytes are stable this morning. Creatinine is stable at 1.1. Is currently normal sinus rhythm with heart rates in the 90s without any overt arrhythmias or ectopy noted. Vital signs are stable. Patient is stable for discharge from a cardiology standpoint. Patient will follow with Dr. Daugherty in 1 week with CBC and CMP. Exam (Progress Note) - Constitutional Vitals: Period Temp Pulse Resp BP Sys/Morton Pulse Ox Last 24 Hr 97 F-98.4 F 71-99 13-26 91-147/50-105 92-100 General appearance: normal weight, no acute distress - Head Head exam: Present: normal inspection, normocephalic, atraumatic - Neck Neck exam: Present: normal inspection. Absent: lymphadenopathy, tenderness, thyromegaly - Respiratory Respiratory exam: Present: other (Minimal crackles heard in the bases.). Absent : accessory muscle use, chest wall tenderness, rhonchi, wheezes - Cardiovascular Cardiovascular exam: Present: regular rate and rhythm. Absent: bradycardia, gallop, rubs, tachycardia - GI/Abdominal GI/Abdominal exam: Present: normal bowel sounds, soft. Absent: distended, firm , mass, tenderness - Extremities Exam Extremities exam: Present: normal inspection, normal capillary refill, other ( Bilateral lower extremity pulses 2+). Absent: calf tenderness, edema - Neurological Exam Neurological exam: Present: alert, oriented X3, normal gait - Psychiatric Psychiatric exam: Present: normal affect, normal mood. Absent: agitated, anxious, depressed - Skin Skin exam: Present: normal color, warm, dry. Absent: cyanosis, erythema Result/EKG - Labs CBC & BMP: 05/04/16 02:40 05/04/16 02:40 Lab Results: I have reviewed the past 24 hour labs Labs: Laboratory Results - last 24 hr 05/03/16 05/04/16 05/04/16 10:25 02:40 02:40 WBC 6.7 RBC 3.64 L Hgb 11.0 L Hct 33.0 L MCV 90.7 MCH 30 MCHC 33.3 RDW 14.7 Plt Count 179 MPV 11.2 Neut % (Auto) 74.1 H Lymph % (Auto) 10.5 L Starke % (Auto) 13.3 H Eos % (Auto) 1.3 Baso % (Auto) 0.4 Neut # (Auto) 5.0 Lymph # (Auto) 0.7 L Starke # (Auto) 0.9 H Eos # (Auto) 0.1 Baso # (Auto) 0.0 Immature Gran % 0.4 Nucleated RBC % 0.0 Immature Gran # 0.03 Nucleated RBCs # 0.00 Sodium 143 Potassium 3.5 Chloride 106 Carbon Dioxide 28 Anion Gap 12.5 BUN 13 Creatinine 1.10 GFR Calculation 74 BUN/Creatinine Ratio 11.00 Glucose 86 Calculated Osmolality 283.0 Calcium 8.0 L Urine Color Yellow Urine Appearance Clear Urine pH 6.0 Ur Specific [place] 1.056 H Urine Protein Negative Urine Glucose (UA) Negative Urine Ketones 5 Urine Blood Negative Urine Nitrate Negative Urine Bilirubin Negative Urine Urobilinogen < 2.0 H Urine Leukocytes Negative Urine RBC 1 Urine WBC <1 Ur Culture Indicated? Not indicated Quality Measures - VTE Contraindication to Pharmacological VTE Prophylaxis: High Risk of Bleeding Specialty Discharge - Follow Up or Referrals Follow up with: Misty Daugherty DO [Physician] - 1 Week (Appointment with Dr. Daugherty in 1 week with CMP and CBC.) <Rosi Wright - Last Filed: 05/04/16 11:04> Cardiology - PN: Subj Interval history: I personally interviewed and examined the patient, reviewed the chart and discussed medical decision-making with practitioner Maxime. I have read this note and agree with the findings herein. Exam (Progress Note) - Constitutional Vitals: Period Temp Pulse Resp BP Sys/Morton Pulse Ox Last 24 Hr 97 F-98.4 F 71-102 13-26 91-142/50-105 93-100 Result/EKG - Labs CBC & BMP: 05/04/16 02:40 05/04/16 02:40 Labs: Laboratory Results - last 24 hr 05/03/16 05/04/16 05/04/16 10:25 02:40 02:40 WBC 6.7 RBC 3.64 L Hgb 11.0 L Hct 33.0 L MCV 90.7 MCH 30 MCHC 33.3 RDW 14.7 Plt Count 179 MPV 11.2 Neut % (Auto) 74.1 H Lymph % (Auto) 10.5 L Starke % (Auto) 13.3 H Eos % (Auto) 1.3 Baso % (Auto) 0.4 Neut # (Auto) 5.0 Lymph # (Auto) 0.7 L Starke # (Auto) 0.9 H Eos # (Auto) 0.1 Baso # (Auto) 0.0 Immature Gran % 0.4 Nucleated RBC % 0.0 Immature Gran # 0.03 Nucleated RBCs # 0.00 Sodium 143 Potassium 3.5 Chloride 106 Carbon Dioxide 28 Anion Gap 12.5 BUN 13 Creatinine 1.10 GFR Calculation 74 BUN/Creatinine Ratio 11.00 Glucose 86 Calculated Osmolality 283.0 Calcium 8.0 L Urine Color Yellow Urine Appearance Clear Urine pH 6.0 Ur Specific [place] 1.056 H Urine Protein Negative Urine Glucose (UA) Negative Urine Ketones 5 Urine Blood Negative Urine Nitrate Negative Urine Bilirubin Negative Urine Urobilinogen < 2.0 H Urine Leukocytes Negative Urine RBC 1 Urine WBC <1 Ur Culture Indicated? Not indicated
[2016-05-04] MEDS: FUROSEMIDE 40 MG TABLET PO SCH (08:26)
--- NOTE | 2016-05-04 08:37 | Pulmonology Progress Note ---
Pulmonary - PN: Subj Interval history: Patient is an 85-year-old black man that has recent shortness of breath and came in with a chest x-ray that suggested heart failure. He had a large right effusion that was tapped and is consistent with a transudate. His ejection fraction on his echocardiogram was only about 30%. He is found to have significant coronary artery disease and not felt to be a surgical candidate. He had several stents done yesterday and tolerated this well. He says he is breathing comfortably and not having any chest pain now. He says he is moving around a little better. He says he feels like going home today. Exam (Progress Note) - Constitutional Vitals: Period Temp Pulse Resp BP Sys/Morton Pulse Ox Last 24 Hr 97 F-98.4 F 71-99 13-26 91-147/50-105 92-100 Exam: General appearance: normal weight, no acute distress, other (He is an elderly man that looks quite healthy. He is comfortable lying in bed today. He does not appear short of breath today) - Head Head exam: Present: normal inspection, normocephalic - Eye Eye exam: Present: EOMI. Absent: scleral icterus Pupils: Present: SAEED - ENT ENT exam: Present: normal exam - Neck Neck exam: Present: normal inspection. Absent: lymphadenopathy, thyromegaly - Respiratory Respiratory exam: Present: He has fairly good breath sounds bilaterally is moving air fairly well with minimal crackles. - Cardiovascular Cardiovascular exam: Present: His heart rhythm is regular without a loud murmur. - GI/Abdominal GI/Abdominal exam: Present: normal bowel sounds, hernia (Has a right inguinal hernia), soft. Absent: organomegaly, tenderness - Extremities Exam Extremities exam: Absent: calf tenderness, edema - Neurological Exam Neurological exam: Present: alert, oriented X3, CN II-XII intact - Psychiatric Psychiatric exam: Present: normal affect - Skin Skin exam: Present: warm, dry Results - Labs CBC & BMP: 05/04/16 02:40 05/04/16 02:40 Assessment and Plan (1) Recurrent right pleural effusion Status: Acute Assessment and plan: The patient has actually bilateral pleural effusions worse on the right. Pleural fluid on the right is a transudate. His heart failure is being treated now. Current Visit: Yes (2) Dyspnea Status: Acute Assessment and plan: He is breathing comfortably now. Current Visit: Yes (3) History of gastroesophageal reflux (GERD) Status: Chronic Assessment and plan: He will continue treatment for reflux Current Visit: Yes (4) 3-vessel coronary artery disease Status: Chronic Assessment and plan: He had multiple stents done in seems to be fairly stable now. Current Visit: Yes Specialty Discharge - Follow Up or Referrals Follow up with: Misty Daugherty DO [Physician] - 1 Week (Appointment with Dr. Daugherty in 1 week with CMP and CBC.)
[2016-05-04] MEDS ORDERED: LISINOPRIL 5 MG TABLET PO SCH (09:00)
[2016-05-04] MEDS ORDERED: CARVEDILOL 12.5 MG TABLET PO SCH (09:00)
[2016-05-04] MEDS: ASPIRIN EC 81 MG TABLET PO SCH (09:11)
[2016-05-04] MEDS: SPIRONOLACTONE 25 MG TABLET PO SCH (09:11)
[2016-05-04] MEDS: CLOPIDOGREL 75 MG TABLET PO SCH (09:11)
[2016-05-04] MEDS: PANTOPRAZOLE 40 MG TABLET PO SCH (09:11)
--- NOTE | 2016-05-04 11:37 | Family Practice Progress Note ---
Family Practice - PN: Subj Interval history: Patient seen this afternoon and is doing quite well status post cath procedure. He is sitting up eating well, tolerating diet and in no acute distress. Is very alert and oriented and states he "feels fine". Vital signs are stable and continuing to monitor her lites at this time. I do appreciate cardiology services on this very pleasant gentleman Exam (Progress Note) - Constitutional Vitals: Period Temp Pulse Resp BP Sys/Morton Pulse Ox Last 24 Hr 97 F-98.4 F 71-102 13-26 91-142/50-105 93-100 Exam: Stable hemodynamically. No acute distress is alert and oriented HEENT pupils equal reactive to light extraocular movements are intact neck is supple trachea midline Cardiovascular rate is regular at this time, engine monitor is regular. No chest pain Lungs generally clear except for a few basilar rails patient has no shortness of breath at present Abdomen soft nondistended, continues to have right inguinal hernia which is causing no pain or problems Extremities positive dorsalis pedal pulses bilateral Results - Labs CBC & BMP: 05/04/16 02:40 05/04/16 02:40 Assessment and Plan (1) Recurrent right pleural effusion Status: Resolved Assessment and plan: 04/28/2016pain admitting patient to get a CT of his chest and will get pulmonary to see him 04/29/2016: Pleural effusion drained it was noted to be transudate Current Visit: Yes (2) Dyspnea Status: Resolved Assessment and plan: 04/28/2016 appreciate pulmonary illness case. Oxygen as necessary for shortness of breath until we can address the probable effusion 04/29/2016: Patient having significant decrease in dyspnea we will continue to monitor Current Visit: Yes (3) History of gastroesophageal reflux (GERD) Status: Chronic Assessment and plan: 04/28/2016 we will continue proton pump inhibitors 04/29/2016 history of GERD patient did not have any problems at this time Current Visit: Yes Quality Measures - VTE Contraindication to Pharmacological VTE Prophylaxis: High Risk of Bleeding Specialty Discharge - Follow Up or Referrals Follow up with: Misty Daugherty DO [Physician] - 1 Week (Appointment with Dr. Daugherty in 1 week with CMP and CBC.)
--- NOTE | 2016-05-04 11:47 | Discharge Summary ---
Hospital Course - Hospital Course Hospital Course: Patient came to the clinic prior to hospitalization with shortness of breath and was noted he had a large pleural effusion on the right. Was admitted for further studies and it was found out that he had an ischemic cardiomyopathy with mild renal insufficiency. He was seen by both pulmonary and cardiology. After doing a thoracentesis at which time approximately 1400 mL of fluid were obtained it was felt that his process was probably due to the cardiomyopathy and this ended up being a transudate. A further study with cath was performed and he has severe triple-vessel disease and cardiology successfully performed this using drug-eluting stents which were deployed in the distal RCA, mid RCA, proximal RCA, distal LAD and mid LAD. He tolerated this procedure well and has been doing well since the event. It was felt he would not be a good candidate for cardiac surgery due to his multiple comorbidities and his age. He is on current regimen with lifelong dual antiplatelet therapy and more modification of risk factors. We will be following with him very closely, along with cardiology, with TCM follow-up. At this time the patient's vitals are stable he is very ready and desirous to go home and we are going to discharge him at this time. Diagnosis - Discharge Diagnosis (1) Recurrent right pleural effusion Status: Resolved (2) Dyspnea Status: Resolved (3) History of gastroesophageal reflux (GERD) Status: Chronic Specialty Discharge - Follow Up or Referrals Follow up with: Misty Daugherty DO [Physician] - 1 Week (Appointment with Dr. Daugherty in 1 week with CMP and CBC.) Discharge Plan - Discharge Medications New Carvedilol [Coreg] 12.5 mg PO BID #120 tablet Clopidogrel [Plavix] 75 mg PO DAILY #60 tablet Furosemide Tab [Lasix Tab] 40 mg PO BID DIURETIC #60 tablet Lisinopril [Prinivil] 5 mg PO DAILY #90 tablet Rosuvastatin [Crestor] 10 mg PO BEDTIME #90 tablet Spironolactone [Aldactone] 25 mg PO DAILY #90 tablet Aspirin EC Tab 81 mg PO DAILY tablet Continue Dexlansoprazole [Dexilant] 60 mg PO DAILY - Follow Up or Referral Follow Up: Misty Daugherty DO [Physician] - 1 Week (Appointment with Dr. Daugherty in 1 week with CMP and CBC.) Mario Alberto Hardy DO [Physician] - ([facility] 1:30) - Forms/Instructions Instructions: Left Heart Catheterization (DC), Heart Healthy Diet (GEN), Coronary Intravascular Stent Placement (DC) Exam - Constitutional Vitals: Period Temp Pulse Resp BP Sys/Morton Pulse Ox Last 24 Hr 97 F-98.4 F 71-102 13-26 91-142/50-105 93-100 Exam: Stable hemodynamically. No acute distress is alert and oriented HEENT pupils equal reactive to light extraocular movements are intact neck is supple trachea midline Cardiovascular rate is regular at this time, diagnostic cardiac sonographer is regular. No chest pain Lungs generally clear except for a few basilar rails patient has no shortness of breath at present Abdomen soft nondistended, continues to have right inguinal hernia which is causing no pain or problems, has been eating well Extremities positive dorsalis pedal pulses bilateral. Neurologically fully intact no lateralizing signs motor sensory deficit Discharge Results Procedures and tests throughout hospitalization: Pending Orders 04/29/16 10:10 Cytology Request Routine Labs on day of discharge: Labs from last 24 hours 05/04/16 05/04/16 02:40 02:40 WBC 6.7 RBC 3.64 L Hgb 11.0 L Hct 33.0 L MCV 90.7 MCH 30 MCHC 33.3 RDW 14.7 Plt Count 179 MPV 11.2 Neut % (Auto) 74.1 H Lymph % (Auto) 10.5 L Rains % (Auto) 13.3 H Eos % (Auto) 1.3 Baso % (Auto) 0.4 Neut # (Auto) 5.0 Lymph # (Auto) 0.7 L Rains # (Auto) 0.9 H Eos # (Auto) 0.1 Baso # (Auto) 0.0 Immature Gran % 0.4 Nucleated RBC % 0.0 Immature Gran # 0.03 Nucleated RBCs # 0.00 Sodium 143 Potassium 3.5 Chloride 106 Carbon Dioxide 28 Anion Gap 12.5 BUN 13 Creatinine 1.10 GFR Calculation 74 BUN/Creatinine Ratio 11.00 Glucose 86 Calculated Osmolality 283.0 Calcium 8.0 L DS: Provider Date of admission: 04/28/16 17:44 Primary care physician: Rajat Rooney MD Attending physician on admission: Mario Alberto Hardy DO Consults: 04/28/16 16:43 Consult to Case Mgmt/Social Srvs [CONS] Routine Reason for Case Mgmt/Social Srvs: Discharge Planning Consult to Physician [CONS] Routine Comment: sob pleural effusion Consulting Provider: Ross Ro 04/28/16 20:05 Consult to Pharmacy [CONS] Routine Reason for Pharmacy Consult: Adjust Meds Renal Funct 04/29/16 12:29 Consult to Physician [CONS] Routine Comment: Consulting Provider: Person Notified: MD MARTINEZ Date Notified: 04/29/16 Time Notified: 12:53 04/29/16 12:31 Consult to Physician [CONS] Routine Comment: sob, pleural effusion,fatigue Consulting Provider: Eric Lewis Person Notified: DARIEN Date Notified: 04/29/16 Time Notified: 12:51 04/30/16 08:58 Consult to Cardiac Rehabilitation [CONS] Routine Reason for Cardiac Rehabilitation: Risk Factor Modification 04/30/16 09:05 Consult to Physician [CONS] Routine Comment: ICM Consulting Provider: Haroldo Olmedo Person Notified: Dr. Olmedo Date Notified: 04/30/16 Time Notified: 12:11 Discharging clinician: Mario Alberto Hardy DO
[2016-05-04] MEDS ORDERED: POTASSIUM CHLORIDE 20 MEQ TABLET PO ONE (12:48)
[2016-05-04 14:50] VITALS: BP 101/72
[2016-05-04] MEDS ORDERED: ROSUVASTATIN 10 MG TABLET PO SCH (21:00)
== END 2016-05-04 13:40 | disposition home or self-care (01) ==
LOC: N.5E → N.TELEN 04-30 09:25 → N.CC 05-03 09:10
PROVIDERS: ADMIT Family Medicine; ATTEND Family Medicine